=== PATIENT | female | born 1965 | race Two or more races ===

== ENCOUNTER → 2018-08-15 | Outpatient (CLI) | payer BC | END | disposition home or self-care (01) | LOC: LAB 12:03 | PROVIDERS: ATTEND Obstetrics & Gynecology | DX: N39.0 Urinary tract infection, site not specified (principal) | CPT/HCPCS: 87086 ==

== ENCOUNTER → 2018-10-23 | Outpatient (CLI) | payer BC ==
[2018-10-23 08:14] LABS: Basophils # (auto) 0.1 uL; Eosinophils # (auto) 0.2 uL; Hemoglobin 15.2 g/dL (12.2-16.2); Monocytes # (auto) 0.3 uL; Monocytes % (auto) 5.5 % (0.0-12.0)
[2018-10-23 08:16] LABS: Urine Bacteria NONE SEEN /hpf (None Seen); Urine Blood Negative /uL (Negative); Urine Mucus FEW (None Seen); Urine WBC 1 /hpf (0 - 5)
[2018-10-23 08:18] LABS: Eosinophils % (auto) 2.7 % (0.0-7.0); Hematocrit 43.9 % (36.0-46.0); Lymphocytes # (auto) 2.5 uL; Lymphocytes % (auto) 43.4 % (10.0-50.0); Mean Corpuscular Hemoglobin 34.6 pg (28.0-32.0); Mean Corpuscular Hgb Conc. 34.6 g/dL (32.0-36.0); Mean Corpuscular Volume 99.9 fL (80.0-100.0); Neutrophils # (auto) 2.7 uL; Neutrophils % (auto) 47.4 % (37.0-80.0); Nucleated Red Blood Cells % 0.2 %; Platelet Count (auto) 255 10^3/uL (140-450); White Blood Cell 5.8 10^3/uL (4.4-10.8)
[2018-10-23 08:42] LABS: Potassium 4.1 mmol/L (3.5-5.1)
[2018-10-23 08:54] LABS: Albumin 3.6 g/dL (3.4-5.0); Bilirubin, Total 0.4 mg/dL (0.2-1.0); Calcium 9.3 mg/dL (8.5-10.1); Total Protein 7.1 g/dL (6.4-8.2)
== END | disposition home or self-care (01) ==
LOC: LAB 07:06
PROVIDERS: ATTEND Family Medicine
DX: E78.2 Mixed hyperlipidemia (principal); I10 Essential (primary) hypertension; E03.9 Hypothyroidism, unspecified; E66.9 Obesity, unspecified
CPT/HCPCS: 36415; 80053; 80061; 81001; 82306; 82607; 84443; 85025

== ENCOUNTER → 2020-08-25 | Outpatient (CLI) | payer BC ==
[2020-08-25 13:00] LABS: Albumin 3.8 g/dL (3.4-5.0); Calcium 9.4 mg/dL (8.5-10.1); Potassium 4.2 mmol/L (3.5-5.1)
[2020-08-25 13:05] LABS: BUN/Creatinine Ratio 15.7; Bilirubin, Total 0.4 mg/dL (0.2-1.0); Total Protein 7.4 g/dL (6.4-8.2)
== END | disposition home or self-care (01) ==
LOC: LAB 12:22
PROVIDERS: ATTEND Internal Medicine
DX: E78.5 Hyperlipidemia, unspecified (principal); E55.9 Vitamin D deficiency, unspecified; Z12.11 Encounter for screening for malignant neoplasm of colon
CPT/HCPCS: 36415; 80053; 80061; 82306; 83036; 84443

== ENCOUNTER 2021-06-20 09:19 | Inpatient (IN) | payer BC ==
[~2021-06-20] VITALS: Ht 175.3 cm; Wt 115.5 kg
[2021-06-20 10:16] LABS: Basophils # (auto) 0.1 10 ^3/uL (0-0.2); Basophils % (auto) 0.8 % (0.0-2.0); Eosinophils # (auto) 0.1 10 ^3/uL (0-0.8); Eosinophils % (auto) 0.6 % (0.0-7.0); Hematocrit 44.7 % (36.0-46.0); Hemoglobin 14.9 g/dL (12.2-16.2); Lymphocytes # (auto) 1.9 10 ^3/uL (0.4-5.4); Lymphocytes % (auto) 12.5 % (10.0-50.0); Mean Corpuscular Hemoglobin 33.7 pg (28.0-32.0); Mean Corpuscular Hgb Conc. 33.4 g/dL (32.0-36.0); Mean Corpuscular Volume 100.8 fL (80.0-100.0); Monocytes # (auto) 0.7 10 ^3/uL (0-1.3); Monocytes % (auto) 4.6 % (0.0-12.0); Neutrophils # (auto) 12.2 10 ^3/uL (1.6-8.6); Neutrophils % (auto) 81.5 % (37.0-80.0); Nucleated Red Blood Cells % 0.1 %; Red Blood Cells 4.44 10^6/uL (4.0-5.20); Red Cell Distribution Width 13.1 % (11.8-14.3); White Blood Cell 14.9 10^3/uL (4.4-10.8)
[2021-06-20 10:35] LABS: Albumin 3.6 g/dL (3.4-5.0); BUN/Creatinine Ratio 13.3; Potassium 4.1 mmol/L (3.5-5.1)
[2021-06-20 10:40] LABS: Bilirubin, Total 0.5 mg/dL (0.2-1.0); Total Protein 7.8 g/dL (6.4-8.2)
[2021-06-20] MEDS ORDERED: ONDANSETRON HCL 4 MG/2 ML VIAL IV ONE ×2 (16:00→17:15)
[2021-06-20] MEDS ORDERED: SODIUM CHLORIDE 0.9% 500 ML IV ONE (16:00)
[2021-06-20] MEDS ORDERED: metroNIDAZOLE 500MG/100ML 100 ML IV ONE (16:00)
[2021-06-20] MEDS ORDERED: HYDROmorphone HCL 2 MG/ML VL IV ONE (16:00)
[2021-06-20] MEDS ORDERED: NITROGLYCERIN 0.4 MG SL TAB SL PRN ×2 (17:15→19:00)
[2021-06-20] MEDS ORDERED: MORPHINE SULFATE INJECTION 2 MG/ML SYRG IV PRN ×3 (17:15→19:00)
[2021-06-20] MEDS ORDERED: cefTRIAXone 1GM/50ML D5W 50 ML IV ONE (18:45)
[2021-06-20] MEDS ORDERED: PANTOPRAZOLE 40 MG/10 ML VIAL INJ IV ONE (18:45)
[2021-06-20] MEDS ORDERED: PHE100C PO (19:00)
[2021-06-20] MEDS ORDERED: LEVO25TA6 PO (19:00)
[2021-06-20] MEDS ORDERED: DOCUSATE SOD 100 MG CAP PO PRN (19:00)
[2021-06-20] MEDS ORDERED: ALUM & MAG HYDROX-SIMETH LIQ(MAALOX) 30 ML PO PRN (19:00)
[2021-06-20] MEDS ORDERED: ATOR10TA52 PO (19:00)
[2021-06-20] MEDS ORDERED: LORazepam 0.5 MG TAB PO PRN (19:00)
[2021-06-20] MEDS ORDERED: HYDROcodone-ACET 5/325MG TAB PO PRN (19:00)
[2021-06-20 19:21] LABS: Cholesterol 212 mg/dL (< 200)
[2021-06-20 19:23] LABS: HDL Cholesterol 69 mg/dL (40-59); LDL Cholesterol 120 mg/dL (< 100); Triglycerides 114 mg/dL (< 150)
[2021-06-20 19:29] LABS: Folate (Folic Acid) 22.23 ng/mL (5.38-24)
[2021-06-20 21:00] VITALS: BP 123/66
[2021-06-20] MEDS: SODIUM CHLORIDE 0.9% 1,000 ML IV SCH (21:03)
[2021-06-20 22:00] VITALS: BP 101/48
[2021-06-21] MEDS: ATORVASTATIN 20 MG TAB PO SCH ×2 (00:45→22:20)
[2021-06-21] MEDS: metroNIDAZOLE 500MG/100ML 100 ML IV SCH ×4 (01:28→22:20)
[2021-06-21 05:00] VITALS: BP 101/66
[2021-06-21 06:13] LABS: Basophils # (auto) 0 10 ^3/uL (0-0.2); Basophils % (auto) 0.3 % (0.0-2.0); Eosinophils # (auto) 0 10 ^3/uL (0-0.8)
[2021-06-21 06:15] LABS: Eosinophils % (auto) 0.3 % (0.0-7.0); Hematocrit 39.7 % (36.0-46.0); Hemoglobin 13.5 g/dL (12.2-16.2); Lymphocytes # (auto) 1.6 10 ^3/uL (0.4-5.4); Lymphocytes % (auto) 14.1 % (10.0-50.0); Monocytes # (auto) 0.5 10 ^3/uL (0-1.3); Monocytes % (auto) 4.8 % (0.0-12.0); Neutrophils # (auto) 9.2 10 ^3/uL (1.6-8.6); Neutrophils % (auto) 80.5 % (37.0-80.0); Red Blood Cells 3.98 10^6/uL (4.0-5.20); Red Cell Distribution Width 12.9 % (11.8-14.3); White Blood Cell 11.4 10^3/uL (4.4-10.8)
[2021-06-21 06:23] LABS: INR 1.03 (0.9-1.15); Partial Thromboplastin Time 27.3 sec (23.6-33.0)
[2021-06-21 06:25] LABS: Potassium 3.9 mmol/L (3.5-5.1)
[2021-06-21 06:46] LABS: Albumin 3.1 g/dL (3.4-5.0); BUN/Creatinine Ratio 13.9; Bilirubin, Total 0.4 mg/dL (0.2-1.0); Calcium 8.8 mg/dL (8.5-10.1); Magnesium 2.1 mg/dL (1.6-2.6); Phosphorus 2.7 mg/dL (2.5-4.90); Total Protein 6.8 g/dL (6.4-8.2)
[2021-06-21] MEDS: LEVOTHYROXINE SODIUM 50 MCG TAB PO SCH (06:48)
[2021-06-21 07:30] VITALS: BP 100/52
[2021-06-21] MEDS: PANTOPRAZOLE 40 MG/10 ML VIAL INJ IV SCH (08:59)
[2021-06-21] MEDS: ASPirin 81 mg TAB PO SCH (08:59)
[2021-06-21] MEDS: cefTRIAXone 1GM/50ML D5W 50 ML IV SCH (09:06)
[2021-06-21] MEDS: dilTIAZem 120MG ER CAP PO SCH (09:06)
[2021-06-21] MEDS: ENOXAPARIN SOD 40 MG/0.4 ML SYRINGE SC SCH (09:06)
[2021-06-21] MEDS: ONDANSETRON HCL 4 MG/2 ML VIAL IV PRN ×2 (10:59→17:29)
[2021-06-21] MEDS: SODIUM CHLORIDE 0.9% 1,000 ML IV SCH (11:25)
[2021-06-21 13:20] VITALS: BP 83/49
[2021-06-21 17:32] VITALS: BP 108/69
[2021-06-21 22:00] VITALS: BP 104/65
[2021-06-22] MEDS: ACETAMINOPHEN 325 MG TAB PO PRN ×3 (03:08→18:42)
[2021-06-22] MEDS: SODIUM CHLORIDE 0.9% 1,000 ML IV SCH ×2 (03:37→20:45)
[2021-06-22 05:25] VITALS: BP 105/68
[2021-06-22] MEDS: metroNIDAZOLE 500MG/100ML 100 ML IV SCH ×3 (06:08→21:50)
[2021-06-22] MEDS: LEVOTHYROXINE SODIUM 50 MCG TAB PO SCH (06:50)
[2021-06-22 07:13] LABS: Basophils # (auto) 0.1 10 ^3/uL (0-0.2); Eosinophils # (auto) 0.1 10 ^3/uL (0-0.8); Eosinophils % (auto) 0.9 % (0.0-7.0); Lymphocytes # (auto) 1.7 10 ^3/uL (0.4-5.4)
[2021-06-22 07:15] LABS: Basophils % (auto) 0.6 % (0.0-2.0); Hematocrit 38.7 % (36.0-46.0); Hemoglobin 13.3 g/dL (12.2-16.2); Lymphocytes % (auto) 19.6 % (10.0-50.0); Mean Corpuscular Hemoglobin 34.6 pg (28.0-32.0); Mean Corpuscular Hgb Conc. 34.3 g/dL (32.0-36.0); Mean Corpuscular Volume 100.7 fL (80.0-100.0); Monocytes # (auto) 0.4 10 ^3/uL (0-1.3); Monocytes % (auto) 5.2 % (0.0-12.0); Neutrophils # (auto) 6.3 10 ^3/uL (1.6-8.6); Neutrophils % (auto) 73.7 % (37.0-80.0); Red Blood Cells 3.84 10^6/uL (4.0-5.20); Red Cell Distribution Width 12.8 % (11.8-14.3); White Blood Cell 8.6 10^3/uL (4.4-10.8)
[2021-06-22 07:27] LABS: BUN/Creatinine Ratio 14.3; Calcium 8.8 mg/dL (8.5-10.1); Potassium 4.4 mmol/L (3.5-5.1)
[2021-06-22 09:00] VITALS: BP 99/62
[2021-06-22] MEDS: cefTRIAXone 1GM/50ML D5W 50 ML IV SCH (09:00)
[2021-06-22] MEDS: ASPirin 81 mg TAB PO SCH (09:50)
[2021-06-22] MEDS: PANTOPRAZOLE 40 MG/10 ML VIAL INJ IV SCH (09:50)
[2021-06-22] MEDS: dilTIAZem 120MG ER CAP PO SCH (09:56)
[2021-06-22] MEDS: ENOXAPARIN SOD 40 MG/0.4 ML SYRINGE SC SCH (09:56)
[2021-06-22] MEDS ORDERED: TPN PER PHARMACY 0 ML IV SCH (11:45)
[2021-06-22 13:00] VITALS: BP 96/56
[2021-06-22 13:58] LABS: Albumin 2.9 g/dL (3.4-5.0); Magnesium 2.2 mg/dL (1.6-2.6)
[2021-06-22 14:09] LABS: Alanine Aminotransferase 23 U/L (13-56); Alkaline Phosphatase 73 U/L (45-117); Aspartate Aminotransferase 15 U/L (15-37); Bilirubin, Direct < 0.1 mg/dL (0-0.2); Bilirubin, Total 0.3 mg/dL (0.2-1.0); Phosphorus 3.1 mg/dL (2.5-4.90); Pre Albumin 16.9 mg/dL (20.0-40.0); Total Protein 5.9 g/dL (6.4-8.2); Triglycerides 72 mg/dL (< 150)
[2021-06-22 17:00] VITALS: BP 133/57
[2021-06-22] MEDS ORDERED: AMINO ACID INFUSION IN D10W 1,000 ML IV NR (20:00)
[2021-06-22] MEDS: ATORVASTATIN 20 MG TAB PO SCH (21:49)
[2021-06-22 22:00] VITALS: BP 112/53
[2021-06-23] MEDS ORDERED: DEXTROSE (50%) 50ML SYRG IV SCH
[2021-06-23 05:00] VITALS: BP 123/67
[2021-06-23] MEDS: ACCU-CHEK COMFORT CURVE STRIP VI SCH ×2 (05:23)
[2021-06-23] MEDS: InsuLIN REG 1unit/0.01ml Soln (100units/ml) SC SCH ×2 (05:23)
[2021-06-23] MEDS: metroNIDAZOLE 500MG/100ML 100 ML IV SCH (06:16)
[2021-06-23] MEDS: LEVOTHYROXINE SODIUM 50 MCG TAB PO SCH (06:16)
[2021-06-23 06:53] LABS: Basophils # (auto) 0 10 ^3/uL (0-0.2); Basophils % (auto) 0.4 % (0.0-2.0); Eosinophils # (auto) 0.1 10 ^3/uL (0-0.8); Eosinophils % (auto) 1.2 % (0.0-7.0); Hemoglobin 12.5 g/dL (12.2-16.2); Lymphocytes # (auto) 0.5 10 ^3/uL (0.4-5.4); Lymphocytes % (auto) 10.5 % (10.0-50.0); Mean Corpuscular Hemoglobin 34.8 pg (28.0-32.0); Mean Corpuscular Hgb Conc. 34.8 g/dL (32.0-36.0); Mean Corpuscular Volume 100.2 fL (80.0-100.0); Monocytes # (auto) 0.3 10 ^3/uL (0-1.3); Monocytes % (auto) 6.1 % (0.0-12.0); Neutrophils # (auto) 3.8 10 ^3/uL (1.6-8.6); Neutrophils % (auto) 81.8 % (37.0-80.0); Nucleated Red Blood Cells % 0.1 %; Red Cell Distribution Width 12.8 % (11.8-14.3); White Blood Cell 4.6 10^3/uL (4.4-10.8)
[2021-06-23 07:04] LABS: Albumin 2.8 g/dL (3.4-5.0); Calcium 8.6 mg/dL (8.5-10.1); Magnesium 2.6 mg/dL (1.6-2.6); Potassium 3.8 mmol/L (3.5-5.1)
[2021-06-23 07:07] LABS: BUN/Creatinine Ratio 9.6; Bilirubin, Total 0.2 mg/dL (0.2-1.0); Total Protein 6.1 g/dL (6.4-8.2)
[2021-06-23 09:00] VITALS: BP 127/76
[2021-06-23] MEDS: ENOXAPARIN SOD 40 MG/0.4 ML SYRINGE SC SCH (10:00)
[2021-06-23] MEDS: ASPirin 81 mg TAB PO SCH (10:17)
[2021-06-23] MEDS: PANTOPRAZOLE 40 MG/10 ML VIAL INJ IV SCH (10:17)
[2021-06-23] MEDS: cefTRIAXone 1GM/50ML D5W 50 ML IV SCH (10:17)
[2021-06-23] MEDS: dilTIAZem 120MG ER CAP PO SCH (10:18)
[2021-06-23] MEDS ORDERED: POTASSIUM PHOSPHATE 22 MEQ in SODIUM CHL 0.9% 100 ML IV ONE (10:30)
[2021-06-23] MEDS ORDERED: METR500T PO (11:21)
[2021-06-23] MEDS ORDERED: LEVO500T31 PO (11:21)
== END 2021-06-23 14:00 | disposition home or self-care (01) | DRG 392 ==
LOC: ER 09:19 → OVERFLOW 17:04 → WEST WING 21:56
PROVIDERS: ADMIT Hospitalist; ATTEND Family Medicine
PROC: 05H933Z Insertion of Infusion Device into Right Brachial Vein, Percutaneous Approach (ICD-10-PCS; principal; 2021-06-22)
PROC: B54MZZA Ultrasonography of Right Upper Extremity Veins, Guidance (ICD-10-PCS; 2021-06-22)
DX: K57.32 Diverticulitis of large intestine without perforation or abscess without bleeding (principal); E03.9 Hypothyroidism, unspecified; K21.9 Gastro-esophageal reflux disease without esophagitis; I10 Essential (primary) hypertension; E78.5 Hyperlipidemia, unspecified; D72.829 Elevated white blood cell count, unspecified; E66.01 Morbid (severe) obesity due to excess calories; E78.00 Pure hypercholesterolemia, unspecified; Z68.36 Body mass index [BMI] 36.0-36.9, adult; Z90.49 Acquired absence of other specified parts of digestive tract; Z98.51 Tubal ligation status
CPT/HCPCS: 36415; 71045; 71260; 74176; 80048; 80053; 80061; 80076; 82040; 82378; 82607; 82746; 83036; 83690; 83735; 83880; 84100; 84478; 84484; 85025; 85379; 85610; 85730; 87040; 87426; 93005; 96365; 96375; C9113; G0378; J0696; J2405; J3490

== ENCOUNTER → 2021-07-04 | Outpatient (CLI) | payer BC ==
[~2021-07-04] MED LIST: ATOR10TA52 PO; LEVO25TA6 PO; LEVO500T31 PO; METR500T PO; PHE100C PO
== END | disposition home or self-care (01) ==
LOC: LAB 08:47
PROVIDERS: ATTEND Internal Medicine
DX: Z12.11 Encounter for screening for malignant neoplasm of colon (principal); E13.9 Other specified diabetes mellitus without complications
CPT/HCPCS: 36415; 84443

== ENCOUNTER → 2021-12-27 | Outpatient (CLI) | payer BC ==
[2021-12-28 03:27] LABS: Cholesterol 180 mg/dL (< 200); HDL Cholesterol 39 mg/dL (40-59); LDL Cholesterol 112 mg/dL (< 100); Triglycerides 193 mg/dL (< 150)
== END | disposition home or self-care (01) ==
LOC: LAB 08:57
PROVIDERS: ATTEND Internal Medicine
DX: E78.5 Hyperlipidemia, unspecified (principal)
CPT/HCPCS: 36415; 80061

== ENCOUNTER → 2022-01-20 | Outpatient (CLI) | payer BC ==
[2022-01-20 10:06] LABS: Albumin 3.5 g/dL (3.4-5.0)
[2022-01-20 10:10] LABS: Alanine Aminotransferase 31 U/L (13-56); Alkaline Phosphatase 70 U/L (45-117); Aspartate Aminotransferase 18 U/L (15-37); Bilirubin, Direct < 0.1 mg/dL (0-0.2); Bilirubin, Total 0.4 mg/dL (0.2-1.0); Total Protein 6.6 g/dL (6.4-8.2)
== END | disposition home or self-care (01) ==
LOC: LAB 09:13
PROVIDERS: ATTEND Internal Medicine
DX: E78.5 Hyperlipidemia, unspecified (principal)
CPT/HCPCS: 36415; 80076

== ENCOUNTER → 2022-03-13 | Outpatient (CLI) | payer BC | END | disposition home or self-care (01) | LOC: XYW 09:37 | PROVIDERS: ATTEND Internal Medicine | DX: Z01.818 Encounter for other preprocedural examination (principal); I07.1 Rheumatic tricuspid insufficiency | CPT/HCPCS: 93306 ==

== ENCOUNTER 2022-03-22 09:40 | Day surgery (SDC) | payer BC ==
[2022-03-15 12:35] LABS: Basophils # (auto) 0.1 10 ^3/uL (0-0.2); Basophils % (auto) 0.8 % (0.0-2.0); Eosinophils # (auto) 0.1 10 ^3/uL (0-0.8); Eosinophils % (auto) 1.4 % (0.0-7.0); Hematocrit 42.5 % (36.0-46.0); Hemoglobin 14.4 g/dL (12.2-16.2); Lymphocytes # (auto) 2.4 10 ^3/uL (0.4-5.4); Lymphocytes % (auto) 34.9 % (10.0-50.0); Mean Corpuscular Hemoglobin 33.9 pg (28.0-32.0); Mean Corpuscular Volume 99.7 fL (80.0-100.0); Monocytes # (auto) 0.4 10 ^3/uL (0-1.3); Monocytes % (auto) 6.2 % (0.0-12.0); Neutrophils % (auto) 56.7 % (37.0-80.0); Nucleated Red Blood Cells % 0.1 %; Red Blood Cells 4.26 10^6/uL (4.0-5.20); Red Cell Distribution Width 12.8 % (11.8-14.3)
[2022-03-15 12:42] LABS: Urine Bacteria FEW /hpf (None Seen); Urine Blood Negative /uL (Negative); Urine Specific Gravity 1.014 (1.001-1.035); Urine WBC 1 /hpf (0 - 5)
[2022-03-15 12:52] LABS: INR 0.96 (0.9-1.15); Partial Thromboplastin Time 29.1 sec (24.6-33.4)
[2022-03-15 13:07] LABS: Potassium 4.4 mmol/L (3.5-5.1)
[2022-03-15 13:14] LABS: Albumin 3.7 g/dL (3.4-5.0); BUN/Creatinine Ratio 12.2; Bilirubin, Total 0.3 mg/dL (0.2-1.0); Calcium 9.2 mg/dL (8.5-10.1); Total Protein 6.9 g/dL (6.4-8.2)
[~2022-03-22] VITALS: Ht 175.3 cm; Wt 112.5 kg
[~2022-03-22 09:40] MED LIST changes: +DILT-29 PO; -LEVO500T31 PO; -METR500T PO; -PHE100C PO
[2022-03-22] MEDS ORDERED: METOCLOPRAMIDE HCL 5MG/ml INJ 2ml VIAL IV PRN (13:30)
[2022-03-22] MEDS ORDERED: MORPHINE SULFATE 4 MG/ML SYR/VIAL IV PRN (13:30)
[2022-03-22] MEDS ORDERED: HYDROmorphone HCL 2 MG/ML VL/or syr IV PRN ×2 (13:30)
[2022-03-22] MEDS ORDERED: ceFAZolin 1GM/50ML 100 ML IV ONE (13:34)
[2022-03-22 15:20] VITALS: BP 116/63
== END 2022-03-22 15:20 | disposition home or self-care (01) ==
LOC: SUR 09:40
PROVIDERS: ATTEND Podiatrist
DX: M72.2 Plantar fascial fibromatosis (principal); E78.5 Hyperlipidemia, unspecified; J45.990 Exercise induced bronchospasm; E03.9 Hypothyroidism, unspecified; I48.91 Unspecified atrial fibrillation; Z79.899 Other long term (current) drug therapy; Z79.890 Hormone replacement therapy; Z98.51 Tubal ligation status; Z90.49 Acquired absence of other specified parts of digestive tract; Z20.822 Contact with and (suspected) exposure to COVID-19; Z88.8 Allergy status to other drugs, medicaments and biological substances
CPT/HCPCS: 28060; 36415; 80053; 81001; 85025; 85610; 85730; J0690; U0003

== ENCOUNTER → 2022-03-31 | Outpatient (CLI) | payer BC ==
[2022-03-31 09:33] LABS: Albumin 3.7 g/dL (3.4-5.0)
[2022-03-31 09:36] LABS: Bilirubin, Direct 0.1 mg/dL (0-0.2); Bilirubin, Total 0.4 mg/dL (0.2-1.0); Total Protein 6.7 g/dL (6.4-8.2)
== END | disposition home or self-care (01) ==
LOC: LAB 08:15
PROVIDERS: ATTEND Internal Medicine
DX: E78.5 Hyperlipidemia, unspecified (principal)
CPT/HCPCS: 36415; 80061; 80076

== ENCOUNTER 2022-12-06 10:16 | Day surgery (SDC) | payer BC ==
[2022-12-04 11:59] LABS: Basophils # (auto) 0.1 10 ^3/uL (0-0.2); Basophils % (auto) 0.9 % (0.0-2.0); Eosinophils # (auto) 0.2 10 ^3/uL (0-0.8); Eosinophils % (auto) 2.2 % (0.0-7.0); Hematocrit 42.9 % (36.0-46.0); Hemoglobin 14.7 g/dL (12.2-16.2); Lymphocytes # (auto) 2.6 10 ^3/uL (0.4-5.4); Lymphocytes % (auto) 29.5 % (10.0-50.0); Mean Corpuscular Hemoglobin 34.5 pg (28.0-32.0); Mean Corpuscular Hgb Conc. 34.3 g/dL (32.0-36.0); Mean Corpuscular Volume 100.7 fL (80.0-100.0); Monocytes # (auto) 0.5 10 ^3/uL (0-1.3); Monocytes % (auto) 5.7 % (0.0-12.0); Neutrophils # (auto) 5.5 10 ^3/uL (1.6-8.6); Neutrophils % (auto) 61.7 % (37.0-80.0); Nucleated Red Blood Cells % 0.2 %; Red Blood Cells 4.27 10^6/uL (4.0-5.20); Red Cell Distribution Width 13.1 % (11.8-14.3)
[2022-12-04 12:14] LABS: INR 1.03 (0.9-1.15); Partial Thromboplastin Time 28.5 sec (24.6-33.4)
[2022-12-04 12:22] LABS: Albumin 3.8 g/dL (3.4-5.0); Calcium 9.2 mg/dL (8.5-10.1); Potassium 4.4 mmol/L (3.5-5.1)
[2022-12-04 12:25] LABS: Bilirubin, Total 0.4 mg/dL (0.2-1.0); Total Protein 7.3 g/dL (6.4-8.2)
[2022-12-04 12:28] LABS: Urine Bacteria NONE SEEN /hpf (None Seen); Urine Blood Negative /uL (Negative); Urine Specific Gravity 1.009 (1.001-1.035); Urine WBC <1 /hpf (0 - 5)
[~2022-12-06] VITALS: Ht 175.3 cm; Wt 113.4 kg
[2022-12-06] MEDS ORDERED: KETAMINE 50mg/ML 10ml Vial (500mg/10ml) IV ONE (10:17)
[2022-12-06] MEDS ORDERED: ceFAZolin 1GM/50ML 100 ML IV ONE (10:57)
[2022-12-06] MEDS ORDERED: fentaNYL CITRATE 100 MCG/2 ML VL ONE (12:46)
[2022-12-06] MEDS ORDERED: PROPOFOL 10 MG/ML 20 ML IV ONE (12:46)
[2022-12-06] MEDS ORDERED: GLYCOPYRROLATE 0.2 MG/ML 1ML VIAL ONE (12:46)
[2022-12-06] MEDS ORDERED: ONDANSETRON HCL 4 MG/2 ML VIAL ONE (12:46)
[2022-12-06] MEDS ORDERED: DexAMETHasone SOD PHOS 10MG/1ML VIAL INJ ONE (12:46)
[2022-12-06] MEDS ORDERED: LIDOCAINE 2% (LOCAL ANESTH.) PF 5ml SDV ONE (12:46)
[2022-12-06] MEDS ORDERED: KETOROLAC TROMETH 60MG/2ML VIAL ONE (12:46)
[2022-12-06] MEDS ORDERED: MIDAZOLAM HCL 2MG/2ML 2ml VIAL (1mg/ml) ONE (12:46)
[2022-12-06] MEDS ORDERED: LIDOCAINE W/ EPINEPHRINE 1% 20ML VIAL ONE (12:47)
[2022-12-06] MEDS ORDERED: BUPIVACAINE 0.25% INJ 50ML VIAL ONE (12:48)
[2022-12-06] MEDS ORDERED: CHLORHEXIDINE 4% TOPICAL soln 118ml TOP ONE (12:48)
[2022-12-06] MEDS ORDERED: MEPERIDINE HCL (50 MG/ML) 1 ML VIAL ONE (13:18)
[2022-12-06] MEDS ORDERED: NEOMYCIN-BACITRACIN-POLYM 15GM TOP OINT TOP ONE (13:32)
[2022-12-06 13:39] VITALS: PULSE 81; RESP 15; TEMP 97; O2SAT 98
[2022-12-06] MEDS ORDERED: ONDANSETRON HCL 4 MG/2 ML VIAL IV PRN (13:45)
[2022-12-06] MEDS ORDERED: HYDROmorphone HCL 2 MG/ML VL/or syr IV PRN (13:45)
[2022-12-06 14:40] VITALS: BP 109/62; PULSE 75; RESP 12; O2SAT 93
== END 2022-12-06 14:51 | disposition home or self-care (01) ==
LOC: SUR 10:16
PROVIDERS: ATTEND Surgery
DX: M79.5 Residual foreign body in soft tissue (principal); Z18.10 Retained metal fragments, unspecified
CPT/HCPCS: 20520; 36415; 80053; 81001; 85025; 85610; 85730; 86850; 86900; 86901; 88300; J0690; J1100; J1885; J2001; J2175; J2250; J2405; J2704; J3010; J3490

== ENCOUNTER → 2023-02-13 | Outpatient (CLI) | payer BC | END | disposition home or self-care (01) | LOC: LAB 08:50 | PROVIDERS: ATTEND Internal Medicine | DX: R73.03 Prediabetes (principal); E78.5 Hyperlipidemia, unspecified; Z78.0 Asymptomatic menopausal state | CPT/HCPCS: 36415; 82672; 83036; 84144; 84403; 84443 ==

== ENCOUNTER 2023-04-27 13:24 | Day surgery (SDC) | payer BC ==
[2023-04-25 09:15] LABS: Basophils # (auto) 0.1 10 ^3/uL (0-0.2); Eosinophils # (auto) 0.2 10 ^3/uL (0-0.8); Hemoglobin 14.1 g/dL (12.2-16.2); Monocytes # (auto) 0.5 10 ^3/uL (0-1.3); Neutrophils % (auto) 50.8 % (37.0-80.0)
[2023-04-25 09:19] LABS: Eosinophils % (auto) 2.9 % (0.0-7.0); Hematocrit 40.6 % (36.0-46.0); Lymphocytes # (auto) 2.2 10 ^3/uL (0.4-5.4); Lymphocytes % (auto) 37.5 % (10.0-50.0); Mean Corpuscular Hemoglobin 35.1 pg (28.0-32.0); Mean Corpuscular Hgb Conc. 34.9 g/dL (32.0-36.0); Mean Corpuscular Volume 100.8 fL (80.0-100.0); Monocytes % (auto) 7.8 % (0.0-12.0); Red Blood Cells 4.03 10^6/uL (4.0-5.20); Red Cell Distribution Width 12.7 % (11.8-14.3); White Blood Cell 5.9 10^3/uL (4.4-10.8)
[2023-04-25 09:32] LABS: Partial Thromboplastin Time 29.2 SEC (24.5-34.5); Prothrombin Time 10.5 sec (9.3-11.8)
[2023-04-25 09:41] LABS: Alanine Aminotransferase 25 U/L (7-40); Albumin 4.3 g/dL (3.2-4.8); Alkaline Phosphatase 67 U/L (46-116); Anion Gap 6 (5-15); Aspartate Aminotransferase 16 U/L (13-40); BUN/Creatinine Ratio 18.7 (10.0-20.0); Bilirubin, Total 0.2 mg/dL (0.2-1.0); Blood Urea Nitrogen 17 mg/dL (9-23); Calcium 9.6 mg/dL (8.5-10.1); Carbon Dioxide 28 mmol/L (20-30); Chloride 108 mmol/L (98-107); Glucose 89 mg/dL (74-106); Potassium 4.5 mmol/L (3.5-5.1); Sodium 142 mmol/L (136-145); Total Protein 6.7 g/dL (5.7-8.2)
[~2023-04-27] VITALS: Ht 175.3 cm; Wt 115.7 kg
[~2023-04-27 13:24] MED LIST changes: -ATOR10TA52 PO; +ATOR20TA50 PO; +LEVO125C3 PO; -LEVO25TA6 PO
[2023-04-27] MEDS ORDERED: SODIUM CHLORIDE LOCK 10 ML ONE (13:57)
[2023-04-27 14:20] VITALS: O2SAT 97
[2023-04-27] MEDS: MIDAZOLAM HCL 5 MG/ML-1ML VIAL ONE ×3 (14:26→14:33)
[2023-04-27] MEDS: diphenhdrAMINE HCL 50 MG/1 ML VL ONE ×2 (14:26→14:28)
[2023-04-27] MEDS: fentaNYL CITRATE 100 MCG/2 ML VL ONE ×3 (14:26→14:33)
[2023-04-27 14:44] VITALS: RESP 18; TEMP 97.5; O2SAT 99
[2023-04-27 15:15] VITALS: BP 123/75; PULSE 77; RESP 19; O2SAT 98
[2023-04-28] MEDS ORDERED: HYDROmorphone HCL 2 MG/ML VL/or syr IV PRN (10:00)
== END 2023-04-27 17:05 | disposition home or self-care (01) ==
LOC: GI 13:24
PROVIDERS: ATTEND Internal Medicine Gastroenterology
DX: Z12.11 Encounter for screening for malignant neoplasm of colon (principal); K63.5 Polyp of colon; K57.30 Diverticulosis of large intestine without perforation or abscess without bleeding; K64.8 Other hemorrhoids; M62.89 Other specified disorders of muscle; E78.5 Hyperlipidemia, unspecified; I49.9 Cardiac arrhythmia, unspecified; E03.9 Hypothyroidism, unspecified; F17.210 Nicotine dependence, cigarettes, uncomplicated; E66.9 Obesity, unspecified; Z68.37 Body mass index [BMI] 37.0-37.9, adult; Z88.8 Allergy status to other drugs, medicaments and biological substances; Z79.899 Other long term (current) drug therapy; Z79.890 Hormone replacement therapy; Z98.890 Other specified postprocedural states
CPT/HCPCS: 36415; 45380; 45385; 74018; 80053; 85025; 85610; 85730; J1200; J2250; J3010; J7030; 99152

== ENCOUNTER → 2023-05-09 | Outpatient (CLI) | payer BC ==
[2023-05-09 13:06] LABS: Triglycerides 186 mg/dL (< 150)
[2023-05-09 13:07] LABS: LDL Cholesterol 95 mg/dL (< 100)
[2023-05-09 13:08] LABS: Cholesterol 152 mg/dL (< 200); HDL Cholesterol 35 mg/dL (40-59)
[2023-05-09 13:12] LABS: Folate (Folic Acid) > 24.00 ng/mL (>5.38)
== END | disposition home or self-care (01) ==
LOC: LAB 12:07
PROVIDERS: ATTEND Internal Medicine
DX: E78.5 Hyperlipidemia, unspecified (principal); R73.03 Prediabetes
CPT/HCPCS: 36415; 80061; 82607; 82746

== ENCOUNTER → 2023-06-22 | Outpatient (CLI) | payer BC ==
[2023-06-22 11:22] LABS: Follicle Stimulating Hormone 82.67 IU/L (SEE BELOW); Leuteinizing Hormone 55.1 IU/L
== END | disposition home or self-care (01) ==
LOC: LAB 08:59
PROVIDERS: ATTEND Obstetrics & Gynecology
DX: N95.1 Menopausal and female climacteric states (principal)
CPT/HCPCS: 36415; 82670; 83001; 83002; 84403; 84443

== ENCOUNTER 2023-07-10 11:59 | Emergency (ER) | payer BC ==
[~2023-07-10] VITALS: Ht 175.3 cm; Wt 117.0 kg
[2023-07-10 13:04] VITALS: BP 131/60; PULSE 75; RESP 16; TEMP 97.6; O2SAT 99
[2023-07-10] MEDS ORDERED: KETOROLAC TROMETH 60MG/2ML VIAL IM ONE (13:30)
== END 2023-07-10 13:56 | disposition home or self-care (01) ==
LOC: ER 11:59
DX: G56.21 Lesion of ulnar nerve, right upper limb (principal); E78.5 Hyperlipidemia, unspecified; Z98.890 Other specified postprocedural states; Z79.899 Other long term (current) drug therapy
CPT/HCPCS: 96372; 99283; J1885

== ENCOUNTER → 2023-08-27 | Outpatient (CLI) | payer BC | END | disposition home or self-care (01) | LOC: XYW 08:21 | PROVIDERS: ATTEND Internal Medicine | DX: R00.0 Tachycardia, unspecified (principal) | CPT/HCPCS: 93306 ==

== ENCOUNTER → 2023-10-09 | Outpatient (CLI) | payer BC ==
[~2023-10-09] VITALS: Ht 175.3 cm; Wt 117.9 kg
[2023-10-09] MEDS: ADENOSINE 99 MG in GIVE UN-DILUTED 0 ML IV STA (09:02)
== END | disposition home or self-care (01) ==
LOC: XYW 07:31
PROVIDERS: ATTEND Student in an Organized Health Care Education/Training Program
DX: R00.1 Bradycardia, unspecified (principal); R00.2 Palpitations; E78.5 Hyperlipidemia, unspecified; E03.9 Hypothyroidism, unspecified; R68.82 Decreased libido
CPT/HCPCS: 78452; 93017; A9500; J0153

== ENCOUNTER → 2023-10-22 | Outpatient (CLI) | payer BC ==
[2023-10-22 09:27] LABS: Erythrocyte Sedimentation Rate 13 mm/hr (0-20)
[2023-10-22 09:36] LABS: Triglycerides 201 mg/dL (< 150)
[2023-10-22 09:37] LABS: LDL Cholesterol 92 mg/dL (< 100)
[2023-10-22 09:38] LABS: Cholesterol 158 mg/dL (< 200); HDL Cholesterol 38 mg/dL (40-59)
== END | disposition home or self-care (01) ==
LOC: LAB 08:23
PROVIDERS: ATTEND Internal Medicine
DX: R00.0 Tachycardia, unspecified (principal); E78.5 Hyperlipidemia, unspecified; E03.9 Hypothyroidism, unspecified
CPT/HCPCS: 36415; 80061; 82306; 85652

== ENCOUNTER → 2024-02-07 | Outpatient (CLI) | payer BC ==
[2024-02-07 09:20] LABS: Alanine Aminotransferase 73 U/L (7-40); Albumin 4.3 g/dL (3.2-4.8); Alkaline Phosphatase 45 U/L (46-116); Anion Gap 2 (5-15); Aspartate Aminotransferase 38 U/L (13-40); BUN/Creatinine Ratio 15.3 (10.0-20.0); Blood Urea Nitrogen 18 mg/dL (9-23); Calcium 9.9 mg/dL (8.7-10.4); Carbon Dioxide 27 mmol/L (20-30); Chloride 112 mmol/L (98-107); Cholesterol 154 mg/dL (< 200); Glucose 91 mg/dL (74-106); HDL Cholesterol 51 mg/dL (40-59); LDL Cholesterol 87 mg/dL (< 100); Potassium 4.3 mmol/L (3.5-5.1); Sodium 141 mmol/L (136-145); Triglycerides 86 mg/dL (< 150)
[2024-02-07 09:21] LABS: Bilirubin, Total 0.3 mg/dL (0.2-1.0); Total Protein 6.8 g/dL (5.7-8.2)
== END | disposition home or self-care (01) ==
LOC: LAB 08:22
PROVIDERS: ATTEND Internal Medicine
DX: I10 Essential (primary) hypertension (principal); E78.5 Hyperlipidemia, unspecified; E03.9 Hypothyroidism, unspecified
CPT/HCPCS: 36415; 80053; 80061; 84403; 84443

== ENCOUNTER → 2024-04-28 | Outpatient (CLI) | payer BC ==
[2024-04-28 10:05] LABS: Alanine Aminotransferase 51 U/L (7-40); Albumin 4.2 g/dL (3.2-4.8); Alkaline Phosphatase 38 U/L (46-116); Anion Gap 4 (5-15); Aspartate Aminotransferase 34 U/L (13-40); Blood Urea Nitrogen 13 mg/dL (9-23); Carbon Dioxide 28 mmol/L (20-31); Chloride 112 mmol/L (98-107); Glucose 97 mg/dL (74-106); LDL Cholesterol 92 mg/dL (< 100); Potassium 4.4 mmol/L (3.5-5.1); Sodium 144 mmol/L (136-145); Triglycerides 102 mg/dL (< 150)
[2024-04-28 10:06] LABS: Bilirubin, Total 0.4 mg/dL (0.2-1.0); Cholesterol 159 mg/dL (< 200); HDL Cholesterol 48 mg/dL (40-59); Total Protein 6.7 g/dL (5.7-8.2)
== END | disposition home or self-care (01) ==
LOC: LAB 09:12
PROVIDERS: ATTEND Student in an Organized Health Care Education/Training Program
DX: I10 Essential (primary) hypertension (principal); E78.5 Hyperlipidemia, unspecified; E03.9 Hypothyroidism, unspecified
CPT/HCPCS: 36415; 80053; 80061; 83036; 84443

== ENCOUNTER → 2024-05-19 | Outpatient (CLI) | payer BC ==
[2024-05-19 11:01] LABS: Eosinophils # (auto) 0.1 10 ^3/uL (0-0.8); Lymphocytes # (auto) 2.6 10 ^3/uL (0.4-5.4); Monocytes # (auto) 0.5 10 ^3/uL (0-1.3); Neutrophils # (auto) 2.9 10 ^3/uL (1.6-8.6); Nucleated Red Blood Cells % 0.1 %
[2024-05-19 11:04] LABS: Basophils # (auto) 0 10 ^3/uL (0-0.2); Basophils % (auto) 0.7 % (0.0-2.0); Eosinophils % (auto) 2.4 % (0.0-7.0); Hematocrit 41.7 % (36.0-46.0); Hemoglobin 14.3 g/dL (12.2-16.2); Lymphocytes % (auto) 42.5 % (10.0-50.0); Mean Corpuscular Hemoglobin 34.4 pg (28.0-32.0); Mean Corpuscular Hgb Conc. 34.4 g/dL (32.0-36.0); Mean Corpuscular Volume 100.2 fL (80.0-100.0); Monocytes % (auto) 7.5 % (0.0-12.0); Neutrophils % (auto) 46.9 % (37.0-80.0); Platelet Count (auto) 309 10^3/uL (140-450); Red Blood Cells 4.16 10^6/uL (4.0-5.20); White Blood Cell 6.2 10^3/uL (4.4-10.8)
[2024-05-19 11:39] LABS: Alanine Aminotransferase 37 U/L (7-40); Alkaline Phosphatase 40 U/L (46-116); Anion Gap 6 (5-15); Calcium 10.2 mg/dL (8.7-10.4); Carbon Dioxide 28 mmol/L (20-31); Chloride 109 mmol/L (98-107); Potassium 4.9 mmol/L (3.5-5.1); Sodium 143 mmol/L (136-145)
[2024-05-19 11:41] LABS: Albumin 4.4 g/dL (3.2-4.8); Aspartate Aminotransferase 24 U/L (13-40); Glucose 86 mg/dL (74-106)
[2024-05-19 11:42] LABS: Blood Urea Nitrogen 11 mg/dL (9-23)
[2024-05-19 11:44] LABS: Bilirubin, Total 0.3 mg/dL (0.2-1.0); Total Protein 6.7 g/dL (5.7-8.2)
== END | disposition home or self-care (01) ==
LOC: LAB 10:34
PROVIDERS: ATTEND Internal Medicine
DX: I10 Essential (primary) hypertension (principal); E78.5 Hyperlipidemia, unspecified
CPT/HCPCS: 36415; 80053; 85025

== ENCOUNTER → 2024-08-26 | Outpatient (CLI) | payer BC ==
[2024-08-26 11:51] LABS: Anion Gap 7 (5-15); Carbon Dioxide 27 mmol/L (20-31); Potassium 4.6 mmol/L (3.5-5.1); Sodium 141 mmol/L (136-145)
[2024-08-26 11:53] LABS: Calcium 10.3 mg/dL (8.7-10.4); Chloride 107 mmol/L (98-107)
[2024-08-26 11:58] LABS: BUN/Creatinine Ratio 13.8 (10.0-20.0); Blood Urea Nitrogen 15 mg/dL (9-23); Glucose 92 mg/dL (74-106)
[2024-08-26 11:59] LABS: Creatinine, Urine 126.47 mg/dL (30.0-125.0)
[2024-08-26 12:01] LABS: Microalb/Creat Ratio, Urine < 3.0
[2024-08-26 12:03] LABS: Micro Albumin < 3.0 mg/L (<30.0)
[2024-08-26 12:57] LABS: Folate (Folic Acid) 25.78 ng/mL (>5.38)
== END | disposition home or self-care (01) ==
LOC: LAB 11:00
PROVIDERS: ATTEND Internal Medicine
DX: I10 Essential (primary) hypertension (principal); E78.5 Hyperlipidemia, unspecified; R73.03 Prediabetes; E66.9 Obesity, unspecified
CPT/HCPCS: 36415; 80048; 82043; 82570; 82607; 82746; 83036; 84443

== ENCOUNTER 2024-11-17 16:10 | Outpatient (CLI) | payer BC | END 2024-11-17 17:00 | disposition home or self-care (01) | LOC: LAB 16:10 | PROVIDERS: ATTEND Registered Nurse | DX: L03.031 Cellulitis of right toe (principal) | CPT/HCPCS: 87205 ==

== ENCOUNTER 2024-11-20 14:54 | Inpatient (IN) | payer BC ==
[~2024-11-20] VITALS: Ht 170.2 cm; Wt 118.0 kg
--- NOTE | 2024-11-20 15:10 | ED.PDOC ---
History of Present Illness HPI Comments 59-year-old female came to the ER because she was having redness of the left lower extremity. 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 She did go see her podiatric for which he sent her to the ER for admission for intravenous antibiotics for cellulitis. She did get her toenails clipped which made with the source of her infection. History of thyroid. Denies any other symptoms. Time Seen by MD: 14:57 Reviewed Notes: Nurses Notes, Medications, Allergies Allergies: Uncoded Allergies: PROPANOLOL (Allergy, Unknown, 06/20/21) Home Meds Reported Medications Atorvastatin Calcium (ATORVASTATIN CALCIUM) 20 Mg Tab, 20 MG PO DAILY, TAB 04/25/23 Levothyroxine Sodium (Levothyroxine Sodium) 125 Mcg Cap, 125 MCG PO DAILY, CAP 04/25/23 Diltiazem Hcl (DILTIAZEM HCL ER) 240 Mg Cap, 120 MG PO QPM, CAP 03/16/22 Information Source: Patient Mode of Arrival: Wheelchair Severity: Moderate Timing: Hours Duration: Since onset Past Medical History PAST MEDICAL HISTORY: High Lipids, Thyroid Surgical History: Appendectomy, Tubal Ligation COATING MACHINE FEEDER History: No Pertinent COATING MACHINE FEEDER History Family History Family History: Reviewed,noncontributory to illness Social History Smoker: Non-Smoker Alcohol: Denies ETOH Use Drugs: Denies Drug Use Lives In: Home Constitutional: denies: chills, diaphoresis, fatigue, fever, malaise, sweats, weakness, others EENTM: denies: blurred vision, double vision, ear bleeding, ear discharge, ear drainage, ear pain, ear ringing, eye pain, eye redness, hearing loss, mouth pain, mouth swelling, nasal discharge, nose bleeding, nose congestion, nose pain, photophobia, tearing, throat pain, throat swelling, voice changes, others Respiratory: denies: cough, hemoptysis, orthopnea, SOB at rest, shortness of breath, SOB with excertion, stridor, wheezing, others Cardiovascular: denies: chest pain, dizzy spells, diaphoresis, Dyspnea on exertion, edema, irregular heart beat, left arm pain, lightheadedness, palpitations, PND, syncope, others Gastrointestinal: denies: abdomen distended, abdominal pain, blood streaked bowels, constipated, diarrhea, dysphagia, difficulty swallowing, hematemesis, melena, nausea, poor appetite, poor fluid intake, rectal bleeding, rectal pain, vomiting, others Genitourinary: denies: abnormal vagina bleeding, burning, dyspareunia, dysuria, flank pain, frequency, hematuria, incontinence, pain, , vagina discharge, urgency, others Neurological: denies: dizziness, fainting, headache, left sided numbness, left sided weakness, numbness, paresthesia, pre-existing deficit, right sided numbness, right sided weakness, seizure, speech problems, tingling, tremors, weakness, others Musculoskeletal: denies: back pain, gout, joint pain, joint swelling, muscle pain, muscle stiffness, neck pain, others Integumetry: denies: bruises, change in color, change in hair/nails, dryness, laceration, lesions, lumps, rash, wounds, others Allergic/Immunocompromised: denies: Difficulty Healing, Frequent Infections, Hives, Itching, others Hematologic/Lymphatic: denies: anemia, blood clots, easy bleeding, easy bruising, swollen glands, others Endocrine: denies: excessive hunger, excessive sweating, excessive thirst, excessive urination, flushing, intolerance to cold, intolerance to heat, unexplained weight gain, unexplained weight loss, others Psychiatric: denies: anxiety, bipolar disorder, depression, hopeless, panic disorder, schizophrenia, sleepless, suicidal, others Physical Exam General Appearance: Moderate Distress HEENT: Normal ENT Inspection, Pharynx Normal, TMs Normal Neck: Full Range of Motion, Non-Tender, Normal, Normal Inspection Respiratory: Chest Non-Tender, Lungs Clear, No Accessory Muscle Use, No Respiratory Distress, Normal Breath Sounds Cardiovascular: No Edema, No JVD, No Murmur, No Gallop, Normal Peripheral Pulses, Regular Rate/Rhythm Breast Exam: Deferred Gastrointestinal: No Organomegaly, Non Tender, No Pulsatile Mass, Normal Bowel Sounds, Soft Genitalia: Deferred Pelvic: Deferred Rectal: Deferred Extremities: No calf tenderness, Normal capillary refill, Normal inspection, Normal range of motion, Non-tender, No pedal edema Musculoskeletal : Apperance: Normal Neurologic: Alert, 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 Was a procedure done?: No Differential Dx Considerations may include: Cellulitis X-Ray, Labs, Meds, VS Patient alert. Vitals stable. States that she has been having redness of her left lower extremity. Answering questions. Establish intravenous access. Was given Rocephin. Was given clindamycin. Explained to the patient. Time of 1ST Reevaluation: 15:07 Reevaluation 1ST: Unchanged Patient Education/Counseling: Diagnosis, Treatment, Prognosis, Need For Follow Up Family Education/Counseling: No Family Present Departure 1 Departure Time of Disposition: 15:09 Impression: Primary Impression: Cellulitis Qualified Codes: L03.116 - Cellulitis of left lower limb Disposition: ADMITTED INPATIENT Admit to: Med Surg Condition: Guarded Critical Care Note Critical Care Time?: No Stability Stability form required: No Heart Score Heart Score: Heart Score Response (Comments) Value History N/A 0 EKG N/A 0 Age N/A 0 Risk Factors N/A 0 Troponin N/A 0 Total 0 DUSTIN KEARNEY MD Nov 20, 2024 15:10
[2024-11-20 15:26] LABS: Basophils # (auto) 0 10 ^3/uL (0-0.2); Basophils % (auto) 0.4 % (0.0-2.0); Eosinophils # (auto) 0.1 10 ^3/uL (0-0.8); Eosinophils % (auto) 1.1 % (0.0-7.0); Hematocrit 41.2 % (36.0-46.0); Hemoglobin 14.4 g/dL (12.2-16.2); Lymphocytes # (auto) 0.4 10 ^3/uL (0.4-5.4); Lymphocytes % (auto) 6.3 % (10.0-50.0); Mean Corpuscular Hemoglobin 33.5 pg (28.0-32.0); Mean Corpuscular Hgb Conc. 34.9 g/dL (32.0-36.0); Mean Corpuscular Volume 96.1 fL (80.0-100.0); Monocytes # (auto) 0.4 10 ^3/uL (0-1.3); Monocytes % (auto) 6.9 % (0.0-12.0); Neutrophils # (auto) 5.2 10 ^3/uL (1.6-8.6); Neutrophils % (auto) 85.3 % (37.0-80.0); Platelet Count (auto) 259 10^3/uL (140-450); Red Blood Cells 4.28 10^6/uL (4.0-5.20); Red Cell Distribution Width 13.1 % (11.8-14.3); White Blood Cell 6.1 10^3/uL (4.4-10.8)
[2024-11-20 15:29] LABS: Potassium 4.4 mmol/L (3.5-5.1); Sodium 136 mmol/L (136-145)
[2024-11-20 15:30] LABS: Anion Gap 6 (5-15); Carbon Dioxide 22 mmol/L (20-31)
[2024-11-20 15:35] LABS: BUN/Creatinine Ratio 10.1 (10.0-20.0); Blood Urea Nitrogen 13 mg/dL (9-23); Glucose 104 mg/dL (74-106)
[2024-11-20 15:39] LABS: Chloride 108 mmol/L (98-107)
[2024-11-20 18:15] VITALS: PULSE 84; RESP 20; O2SAT 99
[2024-11-20] MEDS: ACETAMINOPHEN 325 MG TAB PO ONE (18:20)
[2024-11-20] MEDS: ONDANSETRON HCL 4 MG/2 ML VIAL IV ONE ×2 (18:20→22:19)
[2024-11-20] MEDS: cefTRIAXone 1GM/50ML D5W 50 ML IV ONE (18:20)
[2024-11-20 18:45] LABS: Urine Bacteria None Seen /hpf (None Seen)
[2024-11-20 18:53] LABS: Urine Amorphous Crystal FEW /hpf (None Seen); Urine Blood Negative /uL (Negative); Urine Clarity Clear (Clear); Urine Color Yellow (Yellow); Urine Protein, UAD Negative (Negative); Urine Specific Gravity 1.029 (1.001-1.035); Urine Squamous Epithelial Cell FEW /hpf (<5); Urine Urobilinogen Normal (Negative); Urine WBC 1 /HPF (0-5); Urine pH 5.5 (5.0-9.0)
[2024-11-20] MEDS: CLINDAMYCIN 600MG IV 50 ML IV ONE (18:55)
[2024-11-20] MEDS: SODIUM CHLORIDE 0.9% 1,000 ML IV SCH (22:15)
[2024-11-20] MEDS ORDERED: DOCUSATE SOD 100 MG CAP PO PRN (22:15)
[2024-11-20] MEDS: MORPHINE SULFATE 4 MG/ML SYR/VIAL IV ONE (22:20)
--- NOTE | 2024-11-20 23:26 | DVHHP2 ---
History of Present Illness Reason for Visit: Cellulitis of left lower limb History of Present Illness The patient is a 59-year-old female with past medical history of thyroid disease and hyperlipidemia who presented to [facility] ED with complaint of left lower extremity redness and pain. 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 Patient was seen evaluated in the ED, laboratory data shows WBC 6.1, platelets 259, sodium 136, potassium 4.4, BUN 13, creatinine 1.29, glucose 104, calcium 10.0, blood pressure 120/70, heart rate 82, temperature 100.8 F trending down to 99.2 F, O2 saturation 99% on room air. Patient was started on IV antibiotic regimen clindamycin, please see medication orders section in the computer. On my assessment, patient denied chest pain, no headache, no dizziness, no diaphoresis, no shortness of breath, no nausea, no vomiting, no fever, no chills. Patient was admitted for further evaluation and medical management. Past Medical History High Lipids, Thyroid Past Surgical History Appendectomy, Tubal Ligation Family History Reviewed, noncontributory to the management of this case. Past Social History The patient lives at home, denies smoking, alcohol or illicit drugs abuse. Review of Systems Constitutional: Yes: Weakness; No: Fever, Chills, Sweats, Malaise, Other Eyes: No: Pain, Vision change, Conjunctivae inflammation, Eyelid inflammation, Other, Redness ENT: No: Ear pain, Ear discharge, Nose pain, Nose discharge, Nose congestion, Mouth pain, Mouth swelling, Throat pain, Throat swelling, Other Respiratory: No: Cough, Dry, Shortness of breath, SOB with excertion, Wheezing, Hemoptysis, Pleuritic Pain, Sputum, Wheezing, Other Cardiovascular: No: Chest Pain, Palpitations, Orthopnea, Paroxysmal Noc. Dyspnea, Edema, Lt Headedness, Other Gastrointestinal: No: Nausea, Vomiting, Abdominal Pain, Diarrhea, Constipation, Melena, Hematochezia, Other Genitourinary: No Dysuria, No Frequency, No Incontinence, No Hematuria, No Retention, No Other Musculoskeletal: No: other, neck pain, shoulder pain, arm pain, back pain, hand pain, leg pain, foot pain Skin: Other (Lower extremity redness); No: Rash, Lesions, Jaundice, Bruising Neurological: No: Weakness, Numbness, Incoordination, Change in speech, Confusion, Seizures, Other Allergies: Uncoded Allergies: PROPANOLOL (Allergy, Unknown, 06/20/21) Medications Current Medications Medications Dose Ordered Sig/Lisbet Route Start Time Stop Time Status Last Admin Dose Admin Clindamycin Phosphate 50 ml @ 50 mls/hr Q8HR IV 11/21/24 06:00 Atorvastatin Calcium 20 mg HS PO 11/21/24 22:00 Levothyroxine Sodium 125 mcg QAM@0600 PO 11/21/24 06:00 Metoprolol Tartrate 12.5 mg BID PO 11/21/24 10:00 Sodium Chloride 1,000 ml @ 60 mls/hr [id number] IV 11/20/24 22:15 Acetaminophen/ Hydrocodone Bitart 1 tab Q4HP PRN PO 11/20/24 22:15 Ondansetron HCl 4 mg Q4HP PRN IV 11/20/24 22:15 Docusate Sodium 100 mg BIDPRN PRN PO 11/20/24 22:15 Acetaminophen 650 mg Q6HP PRN PO 11/20/24 22:15 Exam Vital Signs Vital Signs Date Time Temp Pulse Resp B/P (MAP) Pulse Ox O2 Delivery O2 Flow Rate FiO2 11/20/24 22:20 78 20 155/86 11/20/24 22:17 99.0 95 99.0 11/20/24 18:15 Room Air* 0 21 General Appearance: Alert, Oriented X3, Cooperative, No acute distress HEENT: Atraumatic, PERRLA, EOMI, Mucous membr. moist/pink Respiratory: Clear to auscultation, Normal air movement Cardiovascular: Regular rate, Normal S1, Normal S2, No murmurs Abdominal: Normal bowel sounds, Soft, No tenderness, No hepatospenomegaly, No masses Extremities: No clubbing, No cyanosis, No edema, Normal pulses, No tenderness/swelling Skin: No rashes, No breakdown, No significant lesion Neuro: Normal speech, Normal tone, Sensation intact, Cranial nerves 3-12 NL, Reflexes 2+, Other (Weakness) Psych/Mental Status: Mental status NL, Mood NL Labs/Xrays Labs Test 11/20/24 17:18 11/20/24 15:10 Range/Units Urine Color Yellow Yellow Urine Clarity Clear Clear Urine pH 5.5 5.0-9.0 Urine Specific [place] 1.029 1.001-1.035 Urine Protein Negative Negative Urine Ketones Negative Negative Urine Blood Negative Negative /uL Urine Nitrite Negative Negative Urine Bilirubin Negative Negative Urine Urobilinogen Normal Negative mg/dL Urine Leukocyte Esterase Negative Negative /uL Urine RBC 1 0 - 4 /hpf Urine Microscopic WBC 1 0-5 /HPF Urine Squamous Epithelial Cells Few <5 /hpf Urine Amorphous Crystals Few None Seen /hpf Urine Bacteria None seen None Seen /hpf Urine Glucose Normal Normal mg/dL White Blood Count 6.1 4.4-10.8 10^3/uL Red Blood Count 4.28 4.0-5.20 10^6/uL Hemoglobin 14.4 12.2-16.2 g/dL Hematocrit 41.2 36.0-46.0 % Mean Corpuscular Volume 96.1 80.0-100.0 fL Mean Corpuscular Hemoglobin 33.5 H 28.0-32.0 pg Mean Corpuscular Hemoglobin Concent 34.9 32.0-36.0 g/dL Red Cell Distribution Width 13.1 11.8-14.3 % Platelet Count 259 140-450 10^3/uL Mean Platelet Volume 7.2 6.9-10.8 fL Neutrophils (%) (Auto) 85.3 H 37.0-80.0 % Lymphocytes (%) (Auto) 6.3 L 10.0-50.0 % Monocytes (%) (Auto) 6.9 0.0-12.0 % Eosinophils (%) (Auto) 1.1 0.0-7.0 % Basophils (%) (Auto) 0.4 0.0-2.0 % Neutrophils # (Auto) 5.2 1.6-8.6 10 ^3/uL Lymphocytes # (Auto) 0.4 0.4-5.4 10 ^3/uL Monocytes # (Auto) 0.4 0-1.3 10 ^3/uL Eosinophils # (Auto) 0.1 0-0.8 10 ^3/uL Basophils # (Auto) 0 0-0.2 10 ^3/uL Nucleated Red Blood Cells 0.0 % Sodium Level 136 136-145 mmol/L Potassium Level 4.4 3.5-5.1 mmol/L Chloride Level 108 H 98-107 mmol/L Carbon Dioxide Level 22 20-31 mmol/L Anion Gap 6 5-15 Blood Urea Nitrogen 13 9-23 mg/dL Creatinine 1.29 H 0.550-1.02 mg/dL Glomerular Filtration Rate Calc 48 >90 mL/min BUN/Creatinine Ratio 10.1 10.0-20.0 Serum Glucose 104 74-106 mg/dL Calcium Level 10.0 8.7-10.4 mg/dL Thyroid Stimulating Hormone (TSH) 1.05 0.55-4.78 uIU/mL Assessment/Plan Assessment/Plan Cellulitis of left lower limb Cellulitis Fever, unspecified Generalized weakness Plan 1. Admit to med surge unit 2. Breathing treatment 3. Pain control management 4. IV antibiotic management 5. Management of fluids and electrolytes 6. Consultation for hospitalist 7. Diagnostic test chest x-ray 8. DVT prophylaxis on SCDs 9. Repeat labs CBC, CMP in a.m. 10. Home medication reviewed and reconciled 11. Continue with current medical management 12. Treatment plan discussed with patient and RN. Patient verbalized understanding. Plan discussed with: Patient, Other (RN) My Orders Orders - SHINE LYMAN DNP Procedure Category Date Status Time Clindamycin 600mg Iv PHA 11/21/24 In Process (Cleocin Iv) 06:00 Atorvastatin (Lipitor) PHA 11/21/24 In Process 22:00 Levothyroxine Tablet PHA 11/21/24 In Process (Synthroid Tablet) 06:00 Metoprolol Tartrate PHA 11/21/24 In Process Tablet (Lopressor Ta 10:00 Allergies MACIE 11/20/24 In Process 22:13 Code Status CODE 11/20/24 Transmitted 22:13 2 Gm Sodium Diet DIET 11/21/24 Transmitted Breakfast Sodium Chloride 0.9% PHA 11/20/24 In Process 22:15 Oxygen Per Hour RT 11/20/24 Transmitted 22:13 Hydrocodone-Acet PHA 11/20/24 In Process 5/325mg Tab ([place] 22:15 Ondansetron Hcl PHA 11/20/24 In Process (Zofran) 22:15 Docusate Sodium PHA 11/20/24 In Process Capsule ([place] 22:15 Complete Blood Count LAB 11/21/24 Verified 04:00 Comprehensive LAB 11/21/24 Verified Metabolic Panel 04:00 Condition: Serious MACIE 6/5/25 In Process 22:13 Acetaminophen Tablet PHA 11/20/24 In Process (Tylenol Tablet) 22:15 Bedrest With Bathroom MACIE 11/20/24 In Process Privileg 22:13 Sequential MACIE 11/20/24 In Process Compression Device Problem List: (1) Cellulitis of left lower limb (2) Cellulitis (3) Fever, unspecified (4) Generalized weakness Date of Service: Nov 20, 2024 Billing Provider: SHINE LYMAN DNP Common Visit Codes: [id number] INP/OBS CARE (HIGH) SHINE LYMAN DNP Nov 20, 2024 23:26
[2024-11-20] MEDS ORDERED: NITROGLYCERIN 0.4 MG SL TAB SL PRN (23:30)
[2024-11-20] MEDS ORDERED: MORPHINE SULFATE INJ 2 MG/ml SYRG IV PRN (23:30)
[2024-11-21] VITALS (8 sets, daily range): BP systolic 91–112; BP diastolic 40–59; PULSE 62–89; RESP 15–18; TEMP 98.2–100; O2SAT 94–97
[2024-11-21] MEDS: ONDANSETRON HCL 4 MG/2 ML VIAL IV PRN (03:21)
[2024-11-21] MEDS: HYDROcodone-ACET 5/325MG TAB PO PRN (03:22)
[2024-11-21] MEDS: ACETAMINOPHEN 325 MG TAB PO PRN (03:22)
[2024-11-21] MEDS ORDERED: FENO54TA4 PO (04:57)
[2024-11-21] MEDS: CLINDAMYCIN 600MG IV 50 ML IV SCH (05:38)
[2024-11-21] MEDS: LEVOTHYROXINE SODIUM 50 MCG TAB PO SCH (05:58)
[2024-11-21 05:59] LABS: Basophils # (auto) 0 10 ^3/uL (0-0.2); Basophils % (auto) 0.6 % (0.0-2.0); Eosinophils # (auto) 0 10 ^3/uL (0-0.8); Eosinophils % (auto) 0.9 % (0.0-7.0); Hematocrit 39.2 % (36.0-46.0); Hemoglobin 13.4 g/dL (12.2-16.2); Lymphocytes # (auto) 0.3 10 ^3/uL (0.4-5.4); Lymphocytes % (auto) 7.6 % (10.0-50.0); Mean Corpuscular Hemoglobin 33.3 pg (28.0-32.0); Mean Corpuscular Hgb Conc. 34.3 g/dL (32.0-36.0); Mean Corpuscular Volume 97.1 fL (80.0-100.0); Monocytes # (auto) 0.3 10 ^3/uL (0-1.3); Monocytes % (auto) 7.7 % (0.0-12.0); Neutrophils # (auto) 3.7 10 ^3/uL (1.6-8.6); Neutrophils % (auto) 83.2 % (37.0-80.0); Nucleated Red Blood Cells % 0.1 %; Platelet Count (auto) 208 10^3/uL (140-450); Red Blood Cells 4.04 10^6/uL (4.0-5.20); White Blood Cell 4.4 10^3/uL (4.4-10.8)
[2024-11-21 06:11] LABS: Alanine Aminotransferase 31 U/L (7-40); Albumin 4.2 g/dL (3.2-4.8); Anion Gap 8 (5-15); Aspartate Aminotransferase 27 U/L (13-40); BUN/Creatinine Ratio 9.5 (10.0-20.0); Blood Urea Nitrogen 13 mg/dL (9-23); Calcium 9.1 mg/dL (8.7-10.4); Carbon Dioxide 24 mmol/L (20-31); Chloride 103 mmol/L (98-107); Glucose 99 mg/dL (74-106); Potassium 4.2 mmol/L (3.5-5.1); Total Protein 6.5 g/dL (5.7-8.2)
[2024-11-21 06:14] LABS: Alkaline Phosphatase 35 U/L (46-116); Bilirubin, Total 0.2 mg/dL (0.2-1.0); Sodium 135 mmol/L (136-145)
[2024-11-21] MEDS: METOPROLOL TARTRATE 25 MG TAB PO SCH (09:59)
--- NOTE | 2024-11-21 13:44 | DVHPN2 ---
Reviewed: Care Plan, H&P, Labs, Medications, Previous Orders, Radiology Changes from previous H/P or p: No Changes Eyes: No Pain, No Vision change, No Conjunctivae inflammation, No Eyelid inflammation, No Other, No Redness ENT: No Ear pain, No Ear discharge, No Nose pain, No Nose discharge, No Nose congestion, No Mouth pain, No Mouth swelling, No Throat pain, No Throat swelling, No Other Cardiovascular: No Chest Pain, No Palpitations, No Orthopnea, No Paroxysmal Noc. Dyspnea, No Edema, No Lt Headedness, No Other Respiratory: No Cough, No Dry, No Shortness of breath, No SOB with excertion, No Wheezing, No Hemoptysis, No Pleuritic Pain, No Sputum, No Other Gastrointestinal: No Nausea, No Vomiting, No Abdominal Pain, No Diarrhea, No Constipation, No Melena, No Hematochezia, No Other Genitourinary: No Dysuria, No Frequency, No Incontinence, No Hematuria, No Retention, No Other Musculoskeletal: No other, No neck pain, No shoulder pain, No arm pain, No back pain, No hand pain, No leg pain, No foot pain Skin: No Rash, No Lesions, No Jaundice, No Bruising; Other (Lower extremity redness) Objective Vitals Vital Signs Date Time Temp Pulse Resp B/P (MAP) Pulse Ox O2 Delivery O2 Flow Rate FiO2 11/21/24 09:00 98.4 77 16 101/59 (73) 97 98.4 11/21/24 08:00 Room Air* 0 21 Intake/Output Intake and Output 11/21/24 07:00 Intake Total 350 ml Balance 350 ml Intake Oral 200 ml IV Total 150 ml Medications Current Medications Medications Dose Ordered Sig/Lisbet Route Start Time Stop Time Status Last Admin Dose Admin Clindamycin Phosphate 50 ml @ 50 mls/hr Q8HR IV 11/21/24 06:00 11/21/24 13:36 50 MLS/HR Atorvastatin Calcium 20 mg HS PO 11/21/24 22:00 Levothyroxine Sodium 125 mcg QAM@0600 PO 11/21/24 06:00 11/21/24 05:58 125 MCG Metoprolol Tartrate 12.5 mg BID PO 11/21/24 10:00 Sodium Chloride 1,000 ml @ 60 mls/hr [id number] IV 11/20/24 22:15 Acetaminophen/ Hydrocodone Bitart 1 tab Q4HP PRN PO 11/20/24 22:15 11/21/24 10:07 1 TAB Ondansetron HCl 4 mg Q4HP PRN IV 11/20/24 22:15 11/21/24 03:21 4 MG Docusate Sodium 100 mg BIDPRN PRN PO 11/20/24 22:15 Acetaminophen 650 mg Q6HP PRN PO 11/20/24 22:15 11/21/24 13:35 650 MG Nitroglycerin 0.4 mg Q5MINP PRN SL 11/20/24 23:30 Morphine Sulfate 2 mg Q30M PRN IV 11/20/24 23:30 Laboratory Results Laboratory Tests 11/21/24 05:20 Chemistry Test 11/20/24 15:10 11/21/24 05:20 Calcium Level 10.0 mg/dL (8.7-10.4) 9.1 mg/dL (8.7-10.4) Albumin 4.2 g/dL (3.2-4.8) Total Protein 6.5 g/dL (5.7-8.2) LFT Test 11/21/24 05:20 Alanine Aminotransferase (ALT) 31 U/L (7-40) Alkaline Phosphatase 35 U/L (46-116) L Aspartate Amino Transferase (AST) 27 U/L (13-40) Total Bilirubin 0.2 mg/dL (0.2-1.0) HgA1c, TSH Test 11/20/24 15:10 Thyroid Stimulating Hormone (TSH) 1.05 uIU/mL (0.55-4.78) Urinalysis Test 11/20/24 17:18 Urine Color Yellow (Yellow) Urine Clarity Clear (Clear) Urine pH 5.5 (5.0-9.0) Urine Specific [place] 1.029 (1.001-1.035) Urine Protein Negative (Negative) Urine Ketones Negative (Negative) Urine Blood Negative /uL (Negative) Urine Nitrite Negative (Negative) Urine Bilirubin Negative (Negative) Urine Urobilinogen Normal mg/dL (Negative) Urine Leukocyte Esterase Negative /uL (Negative) Urine RBC 1 /hpf (0 - 4) Urine Microscopic WBC 1 /HPF (0-5) Urine Squamous Epithelial Cells Few /hpf (<5) Urine Amorphous Crystals Few /hpf (None Seen) Urine Bacteria None seen /hpf (None Seen) Urine Glucose Normal mg/dL (Normal) Labs and/or images reviewed: Labs reviewed by me, Image(s) reviewed by me Assessment/Plan Assessment/Plan Acute cellulitis of left lower extremity clindamycin Acute generalized weakness Hypercholesterolemia Hypothyroidism Hypertension Plan discussed with: Patient Date of Service: Nov 21, 2024 Billing Provider: FRED ARSHAD MD Common Visit Codes: [id number] INP/OBS CARE(HIGH) FRED ARSHAD MD Nov 21, 2024 13:44
[2024-11-21] MEDS: HYDROcodone-ACET 10/325MG TAB PO PRN (17:36)
[2024-11-21] MEDS: ATORVASTATIN 20 MG TAB PO SCH (22:01)
[2024-11-22] VITALS (8 sets, daily range): BP systolic 89–122; BP diastolic 33–71; PULSE 57–67; RESP 17–19; TEMP 97.7–98.7; O2SAT 93–100
--- NOTE | 2024-11-22 10:56 | DVHPN2 ---
Reviewed: Care Plan, H&P, Labs, Medications, Previous Orders, Radiology Changes from previous H/P or p: No Changes Eyes: No Pain, No Vision change, No Conjunctivae inflammation, No Eyelid inflammation, No Other, No Redness ENT: No Ear pain, No Ear discharge, No Nose pain, No Nose discharge, No Nose congestion, No Mouth pain, No Mouth swelling, No Throat pain, No Throat swelling, No Other Cardiovascular: No Chest Pain, No Palpitations, No Orthopnea, No Paroxysmal Noc. Dyspnea, No Edema, No Lt Headedness, No Other Respiratory: No Cough, No Dry, No Shortness of breath, No SOB with excertion, No Wheezing, No Hemoptysis, No Pleuritic Pain, No Sputum, No Other Gastrointestinal: No Nausea, No Vomiting, No Abdominal Pain, No Diarrhea, No Constipation, No Melena, No Hematochezia, No Other Genitourinary: No Dysuria, No Frequency, No Incontinence, No Hematuria, No Retention, No Other Musculoskeletal: No other, No neck pain, No shoulder pain, No arm pain, No back pain, No hand pain, No leg pain, No foot pain Skin: No Rash, No Lesions, No Jaundice, No Bruising; Other (Lower extremity redness) Objective Vitals Vital Signs Date Time Temp Pulse Resp B/P (MAP) Pulse Ox O2 Delivery O2 Flow Rate FiO2 11/22/24 10:00 60 91/38 11/22/24 08:39 97.8 17 100 97.8 11/21/24 20:00 Room Air* 0 21 Intake/Output Intake and Output 11/22/24 07:00 Intake Total 1500 ml Balance 1500 ml Intake Oral 1350 ml IV Total 150 ml # Voids 7 # Bowel Movements 2 Medications Current Medications Medications Dose Ordered Sig/Lisbet Route Start Time Stop Time Status Last Admin Dose Admin Clindamycin Phosphate 50 ml @ 50 mls/hr Q8HR IV 11/21/24 06:00 11/22/24 05:37 50 MLS/HR Atorvastatin Calcium 20 mg HS PO 11/21/24 22:00 11/21/24 22:01 20 MG Levothyroxine Sodium 125 mcg QAM@0600 PO 11/21/24 06:00 11/22/24 05:37 125 MCG Metoprolol Tartrate 12.5 mg BID PO 11/21/24 10:00 Sodium Chloride 1,000 ml @ 60 mls/hr [id number] IV 11/20/24 22:15 11/22/24 07:35 60 MLS/HR Ondansetron HCl 4 mg Q4HP PRN IV 11/20/24 22:15 11/21/24 03:21 4 MG Docusate Sodium 100 mg BIDPRN PRN PO 11/20/24 22:15 Acetaminophen 650 mg Q6HP PRN PO 11/20/24 22:15 11/21/24 22:06 650 MG Nitroglycerin 0.4 mg Q5MINP PRN SL 11/20/24 23:30 Morphine Sulfate 2 mg Q30M PRN IV 11/20/24 23:30 Acetaminophen/ Hydrocodone Bitart 1 tab Q4HP PRN PO 11/21/24 14:15 11/22/24 10:15 1 TAB Laboratory Results Laboratory Tests 11/21/24 05:20 Urinalysis Test 11/20/24 17:18 Urine Color Yellow (Yellow) Urine Clarity Clear (Clear) Urine pH 5.5 (5.0-9.0) Urine Specific [place] 1.029 (1.001-1.035) Urine Protein Negative (Negative) Urine Ketones Negative (Negative) Urine Blood Negative /uL (Negative) Urine Nitrite Negative (Negative) Urine Bilirubin Negative (Negative) Urine Urobilinogen Normal mg/dL (Negative) Urine Leukocyte Esterase Negative /uL (Negative) Urine RBC 1 /hpf (0 - 4) Urine Microscopic WBC 1 /HPF (0-5) Urine Squamous Epithelial Cells Few /hpf (<5) Urine Amorphous Crystals Few /hpf (None Seen) Urine Bacteria None seen /hpf (None Seen) Urine Glucose Normal mg/dL (Normal) Labs and/or images reviewed: Labs reviewed by me, Image(s) reviewed by me Assessment/Plan Assessment/Plan Acute cellulitis of left lower extremity clindamycin Acute generalized weakness Hypercholesterolemia Hypothyroidism Hypertension Midline in place Will DC tomorrow on home health for IV antibiotics Plan discussed with: Patient My Orders Orders - FRED ARSHAD MD Procedure Category Date Status Time Insert Midline ORDERS 11/21/24 Transmitted 14:08 Blood Culture TIMMY 11/21/24 In Process 14:08 Hydrocodone-Acet PHA 11/21/24 In Process 10/325mg Tab ([place] 14:15 Cleanse Wound With MACIE 11/21/24 In Process Wound Clean 14:13 * Dietary Consult CONS 11/21/24 Transmitted 14:17 Notify Provider NOTICE 11/22/24 Transmitted Malnutrition 07:58 Nutritional NOURISH 11/22/24 Transmitted Supplements 07:58 Dietary NOTICE 11/22/24 Transmitted Recommendations 07:58 Date of Service: Nov 22, 2024 Billing Provider: FRED ARSHAD MD Common Visit Codes: [id number] INP/OBS CARE(HIGH) FRED ARSHAD MD Nov 22, 2024 10:56
[2024-11-22] MEDS: SODIUM CHLORIDE 0.9% 1,000 ML IV SCH (11:30)
[2024-11-23 01:00] VITALS: BP 113/72; PULSE 67; RESP 18; TEMP 97.7; O2SAT 94
[2024-11-23 05:00] VITALS: BP 95/49; PULSE 67; RESP 18; TEMP 96.7; O2SAT 96
[2024-11-23 08:00] VITALS: RESP 17; O2SAT 95
[2024-11-23 09:00] VITALS: BP 110/46; PULSE 61; RESP 20; TEMP 98.3; O2SAT 96
[2024-11-23] MEDS ORDERED: CLIN1CAP70 PO (10:34)
--- NOTE | 2024-11-23 10:36 | DVHPN2 ---
Reviewed: Care Plan, H&P, Labs, Medications, Previous Orders, Radiology Changes from previous H/P or p: No Changes Eyes: No Pain, No Vision change, No Conjunctivae inflammation, No Eyelid inflammation, No Other, No Redness ENT: No Ear pain, No Ear discharge, No Nose pain, No Nose discharge, No Nose congestion, No Mouth pain, No Mouth swelling, No Throat pain, No Throat swelling, No Other Cardiovascular: No Chest Pain, No Palpitations, No Orthopnea, No Paroxysmal Noc. Dyspnea, No Edema, No Lt Headedness, No Other Respiratory: No Cough, No Dry, No Shortness of breath, No SOB with excertion, No Wheezing, No Hemoptysis, No Pleuritic Pain, No Sputum, No Other Gastrointestinal: No Nausea, No Vomiting, No Abdominal Pain, No Diarrhea, No Constipation, No Melena, No Hematochezia, No Other Genitourinary: No Dysuria, No Frequency, No Incontinence, No Hematuria, No Retention, No Other Musculoskeletal: No other, No neck pain, No shoulder pain, No arm pain, No back pain, No hand pain, No leg pain, No foot pain Skin: No Rash, No Lesions, No Jaundice, No Bruising; Other (Lower extremity redness) Objective Vitals Vital Signs Date Time Temp Pulse Resp B/P (MAP) Pulse Ox O2 Delivery O2 Flow Rate FiO2 11/23/24 09:58 61 110/46 11/23/24 09:00 98.3 20 96 98.3 11/22/24 20:00 Room Air* 0 21 Intake/Output Intake and Output 11/23/24 07:00 Intake Total 2230 ml Balance 2230 ml Intake Oral 2130 ml IV Total 100 ml # Voids 9 Medications Current Medications Medications Dose Ordered Sig/Lisbet Route Start Time Stop Time Status Last Admin Dose Admin Clindamycin Phosphate 50 ml @ 50 mls/hr Q8HR IV 11/21/24 06:00 11/23/24 05:19 50 MLS/HR Atorvastatin Calcium 20 mg HS PO 11/21/24 22:00 11/22/24 21:18 20 MG Levothyroxine Sodium 125 mcg QAM@0600 PO 11/21/24 06:00 11/23/24 05:19 125 MCG Metoprolol Tartrate 12.5 mg BID PO 11/21/24 10:00 Ondansetron HCl 4 mg Q4HP PRN IV 11/20/24 22:15 11/21/24 03:21 4 MG Docusate Sodium 100 mg BIDPRN PRN PO 11/20/24 22:15 Acetaminophen 650 mg Q6HP PRN PO 11/20/24 22:15 11/23/24 00:35 650 MG Nitroglycerin 0.4 mg Q5MINP PRN SL 11/20/24 23:30 Morphine Sulfate 2 mg Q30M PRN IV 11/20/24 23:30 Acetaminophen/ Hydrocodone Bitart 1 tab Q4HP PRN PO 11/21/24 14:15 11/22/24 18:00 1 TAB Sodium Chloride 1,000 ml @ 150 mls/hr Q6H40M IV 11/22/24 11:30 11/23/24 05:19 150 MLS/HR Laboratory Results Laboratory Tests 11/21/24 05:20 Urinalysis Test 11/20/24 17:18 Urine Color Yellow (Yellow) Urine Clarity Clear (Clear) Urine pH 5.5 (5.0-9.0) Urine Specific [place] 1.029 (1.001-1.035) Urine Protein Negative (Negative) Urine Ketones Negative (Negative) Urine Blood Negative /uL (Negative) Urine Nitrite Negative (Negative) Urine Bilirubin Negative (Negative) Urine Urobilinogen Normal mg/dL (Negative) Urine Leukocyte Esterase Negative /uL (Negative) Urine RBC 1 /hpf (0 - 4) Urine Microscopic WBC 1 /HPF (0-5) Urine Squamous Epithelial Cells Few /hpf (<5) Urine Amorphous Crystals Few /hpf (None Seen) Urine Bacteria None seen /hpf (None Seen) Urine Glucose Normal mg/dL (Normal) Microbiology Microbiology Date/Time Source Procedure Growth Status 11/21/24 14:39 Blood Blood Culture - Preliminary NO GROWTH AFTER 24 HOURS OF INCUBATION. Resulted Assessment/Plan Assessment/Plan Acute cellulitis of left lower extremity clindamycin Acute generalized weakness Hypercholesterolemia Hypothyroidism Hypertension Patient feels better and wants to go home DC midline Discharged home on p.o. clindamycin Plan discussed with: Patient My Orders Orders - FRED ARSHAD MD Procedure Category Date Status Time Sodium Chloride 0.9% PHA 11/22/24 In Process 11:30 Date of Service: Nov 23, 2024 Billing Provider: FRED ARSHAD MD Common Visit Codes: [id number] INP/OBS CARE(HIGH) FRED ARSHAD MD Nov 23, 2024 10:36
--- NOTE | 2024-11-23 10:40 | DVHDS2 ---
Discharge Summary Date of Admission Nov 20, 2024 at 23:25 Date of Discharge: Nov 23, 2024 Admitting Diagnosis Cellulitis left lower leg Wounds: Cellulitis left lower leg Labs/Diagnostic Data: Laboratory Results Test 11/21/24 05:20 11/20/24 17:18 11/20/24 15:10 White Blood Count 4.4 10^3/uL (4.4-10.8) Red Blood Count 4.04 10^6/uL (4.0-5.20) Hemoglobin 13.4 g/dL (12.2-16.2) Hematocrit 39.2 % (36.0-46.0) Mean Corpuscular Volume 97.1 fL (80.0-100.0) Mean Corpuscular Hemoglobin 33.3 pg (28.0-32.0) Mean Corpuscular Hemoglobin Concent 34.3 g/dL (32.0-36.0) Red Cell Distribution Width 13.0 % (11.8-14.3) Platelet Count 208 10^3/uL (140-450) Mean Platelet Volume 7.3 fL (6.9-10.8) Neutrophils (%) (Auto) 83.2 % (37.0-80.0) Lymphocytes (%) (Auto) 7.6 % (10.0-50.0) Monocytes (%) (Auto) 7.7 % (0.0-12.0) Eosinophils (%) (Auto) 0.9 % (0.0-7.0) Basophils (%) (Auto) 0.6 % (0.0-2.0) Neutrophils # (Auto) 3.7 10 ^3/uL (1.6-8.6) Lymphocytes # (Auto) 0.3 10 ^3/uL (0.4-5.4) Monocytes # (Auto) 0.3 10 ^3/uL (0-1.3) Eosinophils # (Auto) 0 10 ^3/uL (0-0.8) Basophils # (Auto) 0 10 ^3/uL (0-0.2) Nucleated Red Blood Cells 0.1 % Sodium Level 135 mmol/L (136-145) Potassium Level 4.2 mmol/L (3.5-5.1) Chloride Level 103 mmol/L (98-107) Carbon Dioxide Level 24 mmol/L (20-31) Anion Gap 8 (5-15) Blood Urea Nitrogen 13 mg/dL (9-23) Creatinine 1.37 mg/dL (0.550-1.02) Glomerular Filtration Rate Calc 45 mL/min (>90) BUN/Creatinine Ratio 9.5 (10.0-20.0) Serum Glucose 99 mg/dL (74-106) Calcium Level 9.1 mg/dL (8.7-10.4) Total Bilirubin 0.2 mg/dL (0.2-1.0) Aspartate Amino Transferase (AST) 27 U/L (13-40) Alanine Aminotransferase (ALT) 31 U/L (7-40) Alkaline Phosphatase 35 U/L (46-116) Total Protein 6.5 g/dL (5.7-8.2) Albumin 4.2 g/dL (3.2-4.8) Urine Color Yellow (Yellow) Urine Clarity Clear (Clear) Urine pH 5.5 (5.0-9.0) Urine Specific [place] 1.029 (1.001-1.035) Urine Protein Negative (Negative) Urine Ketones Negative (Negative) Urine Blood Negative /uL (Negative) Urine Nitrite Negative (Negative) Urine Bilirubin Negative (Negative) Urine Urobilinogen Normal mg/dL (Negative) Urine Leukocyte Esterase Negative /uL (Negative) Urine RBC 1 /hpf (0 - 4) Urine Microscopic WBC 1 /HPF (0-5) Urine Squamous Epithelial Cells Few /hpf (<5) Urine Amorphous Crystals Few /hpf (None Seen) Urine Bacteria None seen /hpf (None Seen) Urine Glucose Normal mg/dL (Normal) Thyroid Stimulating Hormone (TSH) 1.05 uIU/mL (0.55-4.78) Other Laboratory Tests 11/21/24 05:20 Brief Hx & Hospital Course: DVT ruled female with a history of hypertension hypothyroidism hypercholesterolemia came in admitted for left lower extremity mild cellulitis treated with a clindamycin IV. Patient feels better and wants to go home afebrile discharged home on p.o. clindamycin She will Follow up with her primary Dr Ward in 10 days Consults/Reason for consult None Operations or Procedures None Condition at Discharge: Fair Final Diagnosis/Problems List Acute cellulitis of left lower extremity clindamycin Acute generalized weakness Hypercholesterolemia Hypothyroidism Hypertension Discharge Disposition: Home Discharge Instruct/Medications Diet: Regular Activity: Light activity Follow Up/Referral: Follow up with the primary Dr Dr. Martinez in 10 days Medications: Clindamycin 300 mg PO TID 10 Days Transmitted to the pharmacy 35 (Time Taken for discharge summary 35 minutes) Discharge Statement: "Patient was advised to return to the ER or call 911 if any headaches, dizziness, shortness of breath, chest pain, abdominal pain, bleeding, fevers, or worsening of medical condition. Patient was counseled about treatment plan, medications, possible side effects, patientverbalized understanding. All questions were answered to the best of my ability. This discharge took greater then 30 minutes in planning, reviewing documentation, counseling the patient, and discussing with other team members." ASSESSMENT ASSESSMENT Hospital Course Improved Assessment Acute cellulitis of left lower extremity clindamycin Acute generalized weakness Hypercholesterolemia Hypothyroidism Hypertension Date of Service: Nov 23, 2024 Billing Provider: FRED ARSHAD MD Common Visit Codes: [id number]/[id number] DISCH DAY >30min FRED ARSHAD MD Nov 23, 2024 10:40
[2024-11-23 11:38] VITALS: BP 110/46; PULSE 61; RESP 17; TEMP 36.8; O2SAT 97
[2024-11-23] MEDS ORDERED: DOXY1CAP57 PO (12:41)
== END 2024-11-23 12:49 | disposition home or self-care (01) | DRG 603 ==
LOC: ER 14:54 → EAST 23:25 → OVERFLOW 23:25 → EAST 11-21 02:50
PROVIDERS: ADMIT Family Medicine; ATTEND Family Medicine
PROC: 05HF33Z Insertion of Infusion Device into Left Cephalic Vein, Percutaneous Approach (ICD-10-PCS; principal; 2024-11-21)
PROC: B54NZZA Ultrasonography of Left Upper Extremity Veins, Guidance (ICD-10-PCS; 2024-11-21)
DX: L03.116 Cellulitis of left lower limb (principal); E78.00 Pure hypercholesterolemia, unspecified; E03.9 Hypothyroidism, unspecified; I10 Essential (primary) hypertension; Z79.899 Other long term (current) drug therapy; Z98.51 Tubal ligation status
CPT/HCPCS: 36415; 80048; 80053; 81001; 84443; 85025; 87040; 96365; 96375; G0378; J2405; J3490

== ENCOUNTER 2024-12-29 08:35 | Outpatient (CLI) | payer BC ==
[~2024-12-29 08:35] MED LIST changes: +CLIN1CAP70 PO; +DOXY1CAP57 PO; +FENO54TA4 PO
[2024-12-29 09:37] LABS: Alanine Aminotransferase 30 U/L (7-40); Albumin 4.4 g/dL (3.2-4.8); Anion Gap 5 (5-15); BUN/Creatinine Ratio 13.2 (10.0-20.0); Blood Urea Nitrogen 14 mg/dL (9-23); Calcium 10.4 mg/dL (8.7-10.4); Carbon Dioxide 27 mmol/L (20-31); Glucose 90 mg/dL (74-106); Potassium 4.3 mmol/L (3.5-5.1); Sodium 143 mmol/L (136-145); Total Protein 6.7 g/dL (5.7-8.2); Triglycerides 100 mg/dL (< 150)
[2024-12-29 09:38] LABS: Bilirubin, Total 0.4 mg/dL (0.2-1.0); Cholesterol 159 mg/dL (< 200); HDL Cholesterol 48 mg/dL (40-59)
[2024-12-29 09:46] LABS: Alkaline Phosphatase 39 U/L (46-116); Chloride 111 mmol/L (98-107)
== END 2024-12-29 17:00 | disposition home or self-care (01) ==
LOC: LAB 08:35
PROVIDERS: ATTEND Internal Medicine
DX: E11.22 Type 2 diabetes mellitus with diabetic chronic kidney disease (principal); N18.31 Chronic kidney disease, stage 3a; Z12.11 Encounter for screening for malignant neoplasm of colon
CPT/HCPCS: 36415; 80053; 80061; 83036

== ENCOUNTER 2025-01-20 13:13 | Outpatient (CLI) | payer BC | END 2025-01-20 17:00 | disposition home or self-care (01) | LOC: LAB 13:13 | PROVIDERS: ATTEND Internal Medicine | DX: Z12.11 Encounter for screening for malignant neoplasm of colon (principal); E11.22 Type 2 diabetes mellitus with diabetic chronic kidney disease; N18.31 Chronic kidney disease, stage 3a | CPT/HCPCS: 82270 ==

== ENCOUNTER 2025-05-02 11:20 | Emergency (ER) | payer BC ==
[~2025-05-02] VITALS: Ht 175.3 cm; Wt 115.9 kg
[2025-05-02 11:24] VITALS: BP 121/75; PULSE 74; RESP 20; TEMP 97.9; O2SAT 95
--- NOTE | 2025-05-02 12:00 | ED.PDOC ---
HPI (NEURO) HPI Comments A 59 YEAR OLD FEMALE PRESENTS TO THE ED WITH COMPLAINT OF HEADACHE. THE PATIENT STATES THAT SHE HAD MULTIPLE NOSEBLEED LAST NIGHT FROM RIGHT NOSTRIL AND STATES AFTERWARDS SHE STARTED TO HAVE A RIGHT-SIDED HEADACHE. PATIENT STATES SHE CONTINUED TO HAVE A PRESSURE LIKE PAIN WITH THE RIGHT SIDE OF HER HEAD AND CAME TODAY FOR FURTHER EVALUATION. NOSE BLEEDING STOPPED. PATIENT DENIES FEVER, CHILLS, SHORTNESS OF BREATH, CHEST PAIN, ABDOMINAL PAIN, NAUSEA, VOMITING, OR OTHER COMPLAINTS. NO OTHER SYMPTOMS OR MODIFYING FACTORS AT THIS TIME. PATIENT IS ALERT, ORIENTED X 4, AND HAS STEADY GAIT. Chief Complaint: Headache Time Seen by MD: 11:58 Reviewed Notes: Nurses Notes, Medications, Allergies Information Source: Patient, Spouse Mode of Arrival: Ambulatory Brought in by: SPOUSE Severity: Moderate Dizziness/Weakness Severity: Does not affect activitie Headache Severity: Moderate Timing: Days Duration: Since onset, Days Prehospital treatment: None Headache Quality: Aching, Tight Headache Location: Parietal Onset: At rest Circumstances: Spontaneous Symptoms: None Before: Normal During: Trauma: None History of: None Associated Signs and Symptoms: Headache Past Medical History PAST MEDICAL HISTORY: High Lipids, Thyroid Surgical History: Appendectomy, Tubal Ligation [employer]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 [employer]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 History Family History Family History: Reviewed,noncontributory to illness Social History Smoker: Non-Smoker Alcohol: Denies ETOH Use Drugs: Denies Drug Use Lives In: Home Constitutional: denies: chills, diaphoresis, fatigue, fever, malaise, sweats, weakness, others EENTM: reports: nose bleeding; denies: blurred vision, double vision, ear bleeding, ear discharge, ear drainage, ear pain, ear ringing, eye pain, eye redness, hearing loss, mouth pain, mouth swelling, nasal discharge, nose congestion, nose pain, photophobia, tearing, throat pain, throat swelling, voice changes, others Respiratory: denies: cough, hemoptysis, orthopnea, SOB at rest, shortness of breath, SOB with excertion, stridor, wheezing, others Cardiovascular: denies: chest pain, dizzy spells, diaphoresis, Dyspnea on exe rtion, edema, irregular heart beat, left arm pain, lightheadedness, palpitations, PND, syncope, others Gastrointestinal: denies: abdomen distended, abdominal pain, blood streaked bowels, constipated, diarrhea, dysphagia, difficulty swallowing, hematemesis, melena, nausea, poor appetite, poor fluid intake, rectal bleeding, rectal pain, vomiting, others Genitourinary: denies: abnormal vagina bleeding, burning, dyspareunia, dysuria, flank pain, frequency, hematuria, incontinence, pain, , vagina discharge, urgency, others Neurological: reports: headache; denies: dizziness, fainting, left sided numbness, left sided weakness, numbness, paresthesia, pre-existing deficit, right sided numbness, right sided weakness, seizure, speech problems, tingling, tremors, weakness, others Musculoskeletal: denies: back pain, gout, joint pain, joint swelling, muscle pain, muscle stiffness, neck pain, others Integumetry: denies: bruises, change in color, change in hair/nails, dryness, laceration, lesions, lumps, rash, wounds, others Allergic/Immunocompromised: denies: Difficulty Healing, Frequent Infections, Hives, Itching, others Hematologic/Lymphatic: denies: anemia, blood clots, easy bleeding, easy bruising, swollen glands, others Endocrine: denies: excessive hunger, excessive sweating, excessive thirst, excessive urination, flushing, intolerance to cold, intolerance to heat, unexplained weight gain, unexplained weight loss, others Psychiatric: denies: anxiety, bipolar disorder, depression, hopeless, panic disorder, schizophrenia, sleepless, suicidal, others All Other Systems: Reviewed and Negative Physical Exam General Appearance: No Apparent Distress, Normal, Other (ANXIOUS ) HEENT: Normal ENT Inspection, PERRL/EOMI, Pharynx Normal, TMs Normal, Other (NO NOSE BLEEDING AND BLOOD CLOTS, MILD DRY BLOOD OF RIGHT NOSTRIL, NO BLEEDING AT THIS TIME. ) Neck: Full Range of Motion, Non-Tender, Normal, Normal Inspection Respiratory: Chest Non-Tender, Lungs Clear, No Accessory Muscle Use, No Respiratory Distress, Normal Breath Sounds Cardiovascular: No Edema, No JVD, No Murmur, No Gallop, Normal Peripheral Pulses, Regular Rate/Rhythm Breast Exam: Deferred Gastrointestinal: No Organomegaly, Non Tender, No Pulsatile Mass, Normal Bowel Sounds, Soft Genitalia: Deferred Pelvic: Deferred Rectal: Deferred Extremities: No calf tenderness, Normal capillary refill, Normal inspection, Normal range of motion, Non-tender, No pedal edema Musculoskeletal : Apperance: Normal Neurologic: Alert, 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 Was a procedure done?: No Differential Diagnosis (SZ) Headache: Cluster, Migraine, Closed Head Injury, Intracerebral Hemorrhage, Sinusitis, Trigeminal Neuralgia X-Ray, Labs, Meds, VS Vital Signs Date Time Temp Pulse Resp B/P (MAP) Pulse Ox O2 Delivery O2 Flow Rate FiO2 05/02/25 11:24 97.9 74 20 121/75 95 97.9 [place] [address] Ph: [phone] DIAGNOSTIC IMAGING Diagnostic Imaging Report : [id number] Signed PATIENT: YAZMIN CONNELL ACCT: [id number] UNIT: [id number] : 1965 LOC: ER ROOM / BED: / AGE / SEX: 59 / F ADM STATUS: REG ER SERVICE 1135 ORDERING PHYSICIAN: CHARLENE PARK PROCEDURE(s): HWOCT - HEAD WITHOUT CONTRAST REASON: HEADACHE ORDER NUMBER(s): [id number], ACCESSION NUMBER(s): [id number] CLINICAL HISTORY: HEADACHE TECHNIQUE: Helical scanning was performed of the head from the skull base to the vertex. Multiplanar reconstructions were performed. This exam was performed according to our departmental dose optimization program. Up-to-date CT equipment and radiation dose reduction techniques are utilized as appropriate. CTDI 56 DLP 891 COMPARISON: None FINDINGS: There is no evidence for acute intracranial hemorrhage, acute ischemic changes, mass, mass effect, or extra-axial fluid collection. There is no hydrocephalus or midline shift. There is no effacement of the cerebral sulci and basal subarachnoid cisterns. The morales-white matter differentiation is well maintained. The imaged paranasal sinuses are clear. IMPRESSION: NO ACUTE INTRACRANIAL ABNORMALITY SEEN. ATED BY: DAMIAN CASTRO MD DICTATED DATE/TIME: 05/02/251210 SIGNED BY: DAMIAN CASTRO MD SIGNED DATE/TIME: 05/02/251210 CC: X-Ray, Labs, Meds, VS Comment COURSE: EXTERNAL MEDICAL RECORDS REVIEWED: [NONE] INDEPENDENT HISTORIANS: [NONE] SOCIAL DETERMINANTS OF HEALTH: [NONE] LABS ORDERED: NONE REVIEWED AND INTERPRETED RESULTS: NONE IMAGING ORDERED: CT HEAD WITHOUT CONTRAST TREATMENTS ORDERED: TORADOL 60MG IM PROCEDURES PERFORMED: NONE CRITICAL CARE TIME: NONE I HAVE DISCUSSED THE PATIENT WITH THE ATTENDING PHYSICIAN DR. WHITLEY AND HE AGREES WITH THE PATIENT'S PLAN OF CARE AND DISPOSITION. BASED ON HISTORY OF PRESENT ILLNESS, AND PHYSICAL EXAM, PATIENT WILL BE DISCHARGED HOME. SHARED DECISION MAKING: DISCUSSED WITH PATIENT THAT THEIR WORKUP WAS NORMAL. PATIENT INSTRUCTED TO FOLLOW UP WITH PRIMARY CARE PROVIDER IN 1-2 DAYS FOR RE- EVALUATION OF SYMPTOMS. PATIENT VERBALIZES UNDERSTANDING TO RETURN TO ED FOR NEW OR WORSENING SYMPTOMS OR IF FOLLOW UP WITH PCP CANNOT BE OBTAINED. PATIENT FEELS COMFORTABLE GOING HOME AT THIS TIME. ALL QUESTIONS ADDRESSED AT TIME OF DISCHARGE. Time of 1ST Reevaluation: 12:40 Reevaluation 1ST: Improved Patient Education/Counseling: Diagnosis, Treatment Family Education/Counseling: Diagnosis, Treatment Medical Screening: No EMC Exist At This Time Departure 1 Departure Time of Disposition: 12:40 Impression: Primary Impression: Tension headache Disposition: 01 HOME / SELF CARE / HOMELESS Condition: Stable Additional Instructions: INSTRUCTIONS: FOLLOW-UP WITH PCP IN 1 TO 2 DAYS. TAKE MEDICATIONS PRESCRIBED. RETURN TO ED FOR ANY NEW OR WORSENING SYMPTOMS. Discharged With: Self, Spouse Critical Care Note Critical Care Time?: No Stability Stability form required: No Heart Score Heart Score: Heart Score Response (Comments) Value History N/A 0 EKG N/A 0 Age N/A 0 Risk Factors N/A 0 Troponin N/A 0 Total 0 I personally scribed for CHARLENE PARK ([email or web address]) on 05/02/25 at 12:00. Electronically submitted by Phuc Iglesias ([email or web address]). I personally scribed for CHARLENE PARK ([email or web address]) on 05/02/25 at 12:16. Electronically submitted by Phuc Iglesias ([employer]). I personally scribed for CHARLENE PARK ([email or web address]) on 05/02/25 at 12:26. Electronically submitted by Phuc Iglesias ([email or web address]). CHARLENE PARK May 02, 2025 12:00
--- NOTE | 2025-05-02 12:13 | DVH ---
CLINICAL HISTORY: HEADACHE TECHNIQUE: Helical scanning was performed of the head from the skull base to the vertex. Multiplanar reconstructions were performed. This exam was performed according to our departmental dose optimization program. Up-to-date CT equipment and radiation dose reduction techniques are utilized as appropriate. CTDI 56 DLP 891 COMPARISON: None FINDINGS: There is no evidence for acute intracranial hemorrhage, acute ischemic changes, mass, mass effect, or extra-axial fluid collection. There is no hydrocephalus or midline shift. There is no effacement of the cerebral sulci and basal subarachnoid cisterns. The morales-white matter differentiation is well maintained. The imaged paranasal sinuses are clear. IMPRESSION: NO ACUTE INTRACRANIAL ABNORMALITY SEEN.
[2025-05-02] MEDS: KETOROLAC TROMETH 60MG/2ML VIAL IM ONE (12:32)
== END 2025-05-02 12:39 | disposition home or self-care (01) ==
LOC: ER 11:20
DX: G44.209 Tension-type headache, unspecified, not intractable (principal); Z98.51 Tubal ligation status; Z90.49 Acquired absence of other specified parts of digestive tract; Z79.899 Other long term (current) drug therapy
CPT/HCPCS: 70450; 96372; 99285; J1885

== ENCOUNTER 2025-05-05 09:26 | Outpatient (CLI) | payer BC ==
[2025-05-05 10:30] LABS: Microalb/Creat Ratio, Urine 4.00
[2025-05-05 10:31] LABS: Alanine Aminotransferase 26 U/L (7-40); Albumin 4.3 g/dL (3.2-4.8); Anion Gap 7 (5-15); BUN/Creatinine Ratio 15.1 (10.0-20.0); Blood Urea Nitrogen 16 mg/dL (9-23); Calcium 9.7 mg/dL (8.7-10.4); Carbon Dioxide 29 mmol/L (20-31); Glucose 88 mg/dL (74-106); Potassium 4.4 mmol/L (3.5-5.1); Sodium 145 mmol/L (136-145); Total Protein 6.9 g/dL (5.7-8.2); Triglycerides 111 mg/dL (< 150)
[2025-05-05 10:32] LABS: Bilirubin, Total 0.4 mg/dL (0.2-1.0); HDL Cholesterol 53 mg/dL (40-59)
[2025-05-05 10:49] LABS: Alkaline Phosphatase 44 U/L (46-116); Chloride 109 mmol/L (98-107); Cholesterol 218 mg/dL (< 200)
[2025-05-06 11:03] LABS: Hematocrit 41.5 % (36.0-46.0); Hemoglobin 14.2 g/dL (12.2-16.2); Mean Corpuscular Hemoglobin 33.3 pg (28.0-32.0); Mean Corpuscular Volume 97.6 fL (80.0-100.0); Nucleated Red Blood Cells % 0.1 %
[2025-05-06 11:20] LABS: INR 1.02 (0.9-1.15); Partial Thromboplastin Time 27.3 SEC (24.5-34.5); Prothrombin Time 10.8 sec (9.3-11.8)
== END 2025-05-05 17:00 | disposition home or self-care (01) ==
LOC: LAB 09:26
PROVIDERS: ATTEND Internal Medicine
DX: N18.2 Chronic kidney disease, stage 2 (mild) (principal); R73.03 Prediabetes
CPT/HCPCS: 36415; 80053; 80061; 82043; 82570; 85025; 85610; 85730